=== PATIENT | female | born 1950 | race Caucasian/White ===

== ENCOUNTER 2023-08-26 14:13 | Inpatient (IN) ==
--- NOTE | 2023-08-26 14:17 | ED Triage Note ---
Date of Service August 26, 2023 Provider in Triage Author: Derik Rucker History of Present Illness This patient was briefly evaluated while in triage. An abbreviated physical exam was performed. This patient is a 72-year-old Female who presents to the ED via ambulance for evaluation of right-sided back pain for the past 2 days, and is now concentrating into the shoulder blade region. The patient was playing volleyball on Tuesday, and had no pain at that time. Patient denies any abdominal pain. Patient denies any chest pain, shortness of breath or difficulty breathing. Patient denies any recent injuries to the back. Patient has had a prior history of right elbow fracture. The patient rates her discomfort an 8 out of 10. Physical Exam CONSTITUTIONAL: Healthy and well nourished. Patient does not appear in any acute distress. HEENT: No scleral icterus or conjunctival injection. NECK: Full active range of motion without discomfort. RESPIRATORY: Clear to auscultation bilaterally with no wheezing, crackles, rhonchi or stridor. CARDIOVASCULAR: Regular rate and rhythm with no murmurs, rubs or gallops. GASTROINTESTINAL: Bowel sounds present in all quadrants. Abdomen is soft and nontender to palpation. MUSCULOSKELETAL: No tenderness to palpation over the right posterior shoulder or scapular region. No worsening pain with range of motion of the right shoulder. No tenderness to palpation through the central thoracic spine or paraspinous muscles. INTEGUMENTARY: No rash or other significant dermatologic conditions noted. HEMATOLOGIC: No ecchymosis or petechiae. PSYCHIATRIC: Positive affect. NEUROLOGIC: No focal neurologic deficits noted. Initial orders for labs and / or imaging were placed and patient was placed in the waiting area until a bed is available. Please see further documentation for the full ED course.
[2023-08-26 15:06] LABS: Basophils # (auto) 0.04 K/uL (0.00-0.20); Basophils % (auto) 0.4 %; Eosinophils # (auto) 0.04 K/uL (0.00-0.50); Eosinophils % (auto) 0.4 %; Hemoglobin 16.5 g/dl (12.0-16.0); Immature Granulocytes # (auto) 0.03 K/uL (0.01-0.20); Immature Granulocytes % (auto) 0.3 %; Lymphocytes # (auto) 1.45 K/uL (1.20-3.40); Mean Corpuscular Hemoglobin 31.1 pg (25.0-34.0); Mean Corpuscular Hgb Conc 34.4 g/dL (32.0-36.0); Mean Corpuscular Volume 90.4 fL (80.0-100.0); Monocytes # (auto) 0.55 K/uL (0.11-0.59); Monocytes % (auto) 6.1 %; Neutrophils # (auto) 6.96 K/uL (1.40-6.50); Neutrophils % (auto) 76.8 %; Platelet Count 270 K/uL (130-400); RDW Coefficient of Variation 12.1 % (11.5-14.5); RDW Standard Deviation 39.7 fL (36.4-46.3); Red Blood Count 5.31 M/uL (4.20-5.40); White Blood Count 9.07 K/ul (4.8-10.8)
[2023-08-26 15:14] LABS: Partial Thromboplastin Ratio 0.8; Partial Thromboplastin Time 23 Seconds (21-31); Prothrombin Time 10.5 Seconds (9.0-12.0)
--- NOTE | 2023-08-26 15:14 | XRay Report ---
TWO VIEW CHEST CLINICAL HISTORY: Atypical chest pain. FINDINGS: PA and lateral chest radiographs are obtained. No prior studies are available for compariso n at the time of dictation. The heart is top normal for projection. Suspect aneurysmal dilatation of the ascending thoracic aorta. The lungs and pleural spaces are clear. There is no pneumothorax. The skeletal structures are osteopenic. The bony thorax appears intact. A large gallstone is seen in the right upper quadrant. IMPRESSION: 1. No acute cardiopulmonary abnormality is identified. 2. Question aneurysmal dilatation of the ascending thoracic aorta. This may be artifactual. Correlati on with a chest CT is recommended. 3. A large gallstone is seen in the right upper quadrant. ACT 112: Negative or not required by law. Electronically signed by: Jeffrey Mata M.D. 08/26/2023 3:12 PM
[2023-08-26 15:28] LABS: Troponin I High Sensitivity 3.5 pg/ml (0-14)
--- NOTE | 2023-08-26 15:38 | Emergency Department Note ---
Impression & Plan Biliary colic, Lesion of right soboba kidney, Right shoulder pain ED Provider Note NAME: DEVIN ORDONEZ AGE: 72 SEX: F : 1950 ARRIVES VIA: Ambulance INFORMANT: Patient, ED PROVIDER(S): Kristopher Mendoza MD CHIEF COMPLAINT: Shoulder pain MEDICAL DECISION MAKING: Patient presented due to concern for shoulder pain. IV was established and blood work was obtained along with a chest x-ray and EKG. Patient's blood work shows a normal white count hemoglobin of 16.5 with a normal platelet count kidney function is unremarkable. Calcium of 11.2. Patient's chest x-ray showed concern for large gallstone in the right upper quadrant and possible aneurysmal dilatation of the ascending thoracic aorta. CT angiography of the chest was ordered in addition to gallbladder ultrasound. CT angiography of the chest shows concern for possible right renal mass which may be renal cell carcinoma. Cholelithiasis noted with findings suggestive of acute cholecystitis. No evidence of thoracic aortic aneurysm. Gallbladder ultrasound does show gallbladder distention and cholelithiasis and borderline wall thickening suspicious for cholecystitis. I did inform the patient of the findings. The patient was ordered IV morphine. I did speak the on-call hospital service Alex Herrera PA-C and Dr. Moeller. I also did speak with Dr. Edwards and will be admitted to the medicine service at this time. Patient was ordered Zosyn due to concern for possible cholecystitis. Discussion w/ other healthcare providers: Alex Barrientos PA-C and Dr. Moeller inpatient medicine service Dr. Edwards general surgery Prior /Outside records reviewed: None Differential diagnosis: Referred gallbladder pain, biliary colic, cholecystitis, fracture, sprain, strain, subluxation, dislocation, contusion, ligamentous injury, neurovascular, as well as other etiologies were considered. Diagnostics, as interpreted by me: ECG: Normal sinus rhythm, rate of 88, normal intervals, left axis deviation, no ST elevations Cardiac monitoring: An order was placed for continuous cardiac monitoring. The monitor shows a rate of 82 with sinus rhythm. Patient was placed on pulse oximetry Medical decision rules: None Imaging studies: I informally interpreted the patient's chest x-ray does not show obvious pneumonia or pneumothorax with formal report to follow. HPI: Patient presents due to concern for right-sided posterior shoulder pain. The patient states she initially began having symptoms on Tuesday. The patient had played volleyball on Tuesday but had no symptoms at that time. The patient states that she does not have pain with range of motion of the right upper extremity. The patient is right-hand dominant. The patient denies any trauma or overuse other than having played volleyball. Patient denies any numbness tingling or focal weakness in her right upper extremity. Patient denies abdominal pain or nausea vomiting. PAST MEDICAL HISTORY: See Below PAST SURGICAL HISTORY: See Below SOCIAL HISTORY: See Below HOME MEDICATIONS: See Below ALLERGIES: See Below VITALS: See Below PHYSICAL EXAMINATION: GENERAL: NAD, non-toxic. EYE EXAM: Normal conjunctiva. PERRL, no anisocoria and EOM's grossly intact w/o pain. OROPHARYNX: Moist mucus membranes, grossly normal dentition. NECK: Trachea midline, no stridor. Supple, no nuchal rigidity, no adenopathy, non-tender. No signs of meningismus. FROM of the neck with good chin to chest and neck extension. LUNGS: Clear to auscultation. Normal chest wall mechanics. HEART: NSR, no MRG. ABDOMEN: Abdomen soft, no right upper quadrant pain, no masses, no rebound or guarding. BACK: No CVA TTP. SKIN: No rashes and no bruising. UPPER EXTREMITIES: Upper extremities are grossly normal. No reproducible pain with range of motion of the right upper extremity LOWER EXTREMITIES: Grossly normal, no edema. NEURO EXAM: A&O x3, cranial nerves II-XII grossly intact, normal speech, moves all 4 extremities. Past Med/Surg History Medical History HTN (hypertension) Cyst (solitary) of breast 1994 Surgical History H/O elbow surgery Right Elbow H/O removal of cyst Family History Father Diabetes Mother Alzheimer disease Denies family history of Colon cancer Ovarian cancer Prostate cancer Myocardial infarction Breast cancer Social History Smoking Status: Never smoker Second Hand Exposure: Yes; Do You Dip or Chew Tobacco: No; Hx Alcohol Use: No Hx Substance Use: No Preferred Language: Cambodian Communication Ability: Effective Visual Impairment: No Limitations Hearing Ability: Normal Drapery Cutter Machine Required: No marital status: / Current Living Situation: Alone current occupational status: retired 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 [place] How many Children do You have: 2 Feels Safe at Home: Yes Childhood Exposure to Second-Hand Smoke: Yes Diet: regular Diet Comment: regular caffeine: Yes during the past year weight has: remained stable Dental Care, Regularly: Yes Physical Activity Frequency: Daily Physical Activity Frequency Comment: walking Seatbelt Use: always Sunscreen Use: Yes Do you think of yourself as: straight/heterosexual Assistive Devices: Denture - Upper and Denture - Lower Allergies Allergies Allergy/AdvReac Type Severity Reaction Status Date / Time hydrocodone AdvReac Intermediate Vomiting Verified 08/03/22 09:51 Home Meds Home Medications Medication Instructions Recorded Confirmed atorvastatin 10 mg tablet 10 mg PO QPM 08/26/23 08/26/23 calcium carbonate 500 mg-vitamin 0 tab PO DAILY 08/26/23 08/26/23 D3 10 mcg (400 unit) tablet (Calcium 500 With D) Previous Rx's Medication Instructions Recorded lisinopril 10 mg tablet 10 mg PO DAILY #90 tabs 06/02/23 Results & Data (ED) Vital Signs Vital Signs - 24 hr 08/26/23 14:17 08/26/23 15:14 08/26/23 17:55 Temperature 36.4 C L Temperature Source Temporal Artery Scan Pulse Rate 98 H Pulse Rate [Left Finger] 85 81 Respiratory Rate 16 20 17 Respiratory Depth Normal Blood Pressure 153/109 H Blood Pressure [Right Arm] 174/109 H 200/106 H Blood Pressure Mean 123 Blood Pressure Mean [Right Arm] 130 137 Blood Pressure Position [Right Arm] Lying Pulse Oximetry 95 95 93 Oxygen Delivery Method Room Air Room Air Room Air Sepsis Recent Fever Within 48 Hours No Sepsis New/Unexplained Change in Mental Status N/A Sepsis Action Taken by Nursing No Action Required Home Medications Current Medication List: was personally reviewed by me Laboratory Data Attestation: I reviewed the patient's lab results. 08/26/23 14:49 08/26/23 14:49 Lab Results 08/26/23 Range/Units 14:49 WBC 9.07 (4.8-10.8) K/ul RBC 5.31 (4.20-5.40) M/uL Hgb 16.5 H (12.0-16.0) g/dl Hct 48.0 H (37.0-47.0) % MCV 90.4 (80.0-100.0) fL MCH 31.1 (25.0-34.0) pg MCHC 34.4 (32.0-36.0) g/dL RDW Std Deviation 39.7 (36.4-46.3) fL RDW Coeff of Simeon 12.1 (11.5-14.5) % Plt Count 270 (130-400) K/uL MPV 11.0 (9.4-12.4) fL Immature Gran % (Auto) 0.3 % Neut % (Auto) 76.8 % Lymph % (Auto) 16.0 % [place] % (Auto) 6.1 % Eos % (Auto) 0.4 % Baso % (Auto) 0.4 % Neut # (Auto) 6.96 H (1.40-6.50) K/uL Lymph # (Auto) 1.45 (1.20-3.40) K/uL [place] # (Auto) 0.55 (0.11-0.59) K/uL Eos # (Auto) 0.04 (0.00-0.50) K/uL Baso # (Auto) 0.04 (0.00-0.20) K/uL Immature Gran # (Auto) 0.03 (0.01-0.20) K/uL PT 10.5 (9.0-12.0) Seconds INR 1.0 (0.9-1.1) APTT 23 (21-31) Seconds PTT Ratio 0.8 Sodium 141 (136-145) mmol/L Potassium 3.9 (3.5-5.1) mmol/L Chloride 106 (98-107) mmol/L Carbon Dioxide 23 (21-32) mmol/L Anion Gap 12 H (3-11) BUN 15 (6-23) mg/dl Creatinine 0.98 (0.6-1.2) mg/dl Est Cr Clr Drug Dosing 49.0 ml/min Est GFR ( Amer) 65.9 ml/min Est GFR (Non-Af Amer) 56.8 ml/min BUN/Creatinine Ratio 15.3 (10-20) Glucose 119 H (70-99(Fasting)) mg/dl Calcium 11.2 H (8.6-10.3) mg/dl Total Bilirubin 0.8 (0.2-1.0) mg/dl AST 18 (13-39) U/L ALT 12 (7-52) U/L Alkaline Phosphatase 83 (34-104) U/L Troponin I High Sens 3.5 (0-14) pg/ml Total Protein 8.0 (6.0-8.3) gm/dl Albumin 4.6 (3.4-5.0) gm/dl Globulin 3.4 (2.5-4.0) gm/dl Albumin/Globulin Ratio 1.4 (0.9-2) Lipase 28 (11-82) U/L Administered Medications Parenteral Electrolytes (Plasma-Lyte A Ph 7.4) 1,000 mls @ 100 mls/hr IV .Q10H HAYLEE Stop: 08/27/23 14:29 Last Admin: 08/26/23 19:41 Dose: 100 mls/hr Documented By: MATI Discontinued Medications Piperacillin Sod/Tazobactam Sod (Zosyn) 4.5 gm in 100 mls @ 200 mls/hr IV NOW ONE Stop: 08/26/23 18:18 Last Infusion: 08/26/23 19:03 Dose: Infused Documented By: Admin: 08/26/23 18:04 Dose: 200 mls/hr Documented By: PABLO Ioversol (Optiray 320 125ml) 119 ml IV ONCE ONE Stop: 08/26/23 16:41 Last Admin: 08/26/23 16:40 Dose: 119 ml Documented By: MRATA Morphine Sulfate (Morphine Sulfate 4 Mg/Ml 1 Ml Carp\Vial) 4 mg IV NOW STA Stop: 08/26/23 17:50 Last Admin: 08/26/23 17:52 Dose: 4 mg Documented By: JESSICA Imaging Data Radiologist's Impression: Chest X-Ray 08/26/23 14:20 TWO VIEW CHEST CLINICAL HISTORY: Atypical chest pain. FINDINGS: PA and lateral chest radiographs are obtained. No prior studies are available for comparison at the time of dictation. The heart is top normal for projection. Suspect aneurysmal dilatation of the ascending thoracic aorta. The lungs and pleural spaces are clear. There is no pneumothorax. The skeletal structures are osteopenic. The bony thorax appears intact. A large gallstone is seen in the right upper quadrant. IMPRESSION: 1. No acute cardiopulmonary abnormality is identified. 2. Question aneurysmal dilatation of the ascending thoracic aorta. This may be artifactual. Correlation with a chest CT is recommended. 3. A large gallstone is seen in the right upper quadrant. ACT 112: Negative or not required by law. Electronically signed by: Jeffrey Mata M.D. 08/26/2023 3:12 PM Chest CTA 08/26/23 15:46 CT angio chest PE protocol CT DOSE: 602.94 mGy.cm HISTORY: 72 years-old Female with ?aortic aneurysm. Acute shortness of breath TECHNIQUE: Multiple CTA images of the chest were obtained after the intravenous administration of 119 ml Optiray. Coronal and sagittal MIPS were obtained from the axial data set and were submitted for review. All measurements were obtained according to NASCET criteria. A dose lowering technique was utilized adhering to the principles of ALARA. COMPARISON: Chest radiograph of same day FINDINGS: CTA: Mild cardiomegaly. No pericardial effusion. Ascending thoracic aorta measures 3.8 x 3.9 cm without aneurysm. Patency of the imaged great vessels. Thoracic aortic tortuosity. Unremarkable pulmonary artery. CT CHEST: Subcentimeter hypodense thyroid nodules. Nonspecific mediastinal and hilar lymphadenopathy. Index right hilar lymph node on image 145 series 4 measures 3.2 x 1.5 cm. AP window/paratracheal adenopathy measures up to 2.9 x 1.6 cm. Additional pathologically enlarged gastrohepatic lymph nodes measure up to 11 mm. Mild periesophageal lymphadenopathy. Mild distal esophageal wall thickening. No pneumothorax, pleural effusion, airspace consolidation or pulmonary edema. 4 mm subpleural solid nodule in the apical posterior segment left upper lobe is favored to be benign. Central airways are patent. There is an enhancing 2.0 x 2.2 cm mass of the superior pole right kidney which is partially imaged. Cholelithiasis with gallbladder wall thickening, distention and mild pericholecystic stranding. There are a few subcentimeter hypodensities of the liver which are too small to characterize and likely benign. Colonic diverticulosis. Unremarkable soft tissues. No acute fracture. IMPRESSION: 1. Enhancing 2.2 cm right renal mass suggestive of renal cell carcinoma. 2. Cholelithiasis with findings suggestive of acute cholecystitis. 3. No pulmonary emboli or thoracic aortic aneurysm. 4. Nonspecific lymphadenopathy of the chest and upper abdomen. Follow-up with hematology/oncology recommended. ACT 112: Positive. There are findings on this exam that require communication between the performing entity and the patient following Patient Test Result Information Act ([place] Act 112) guidelines. The above report was generated using voice recognition software. It may contain grammatical, syntax or spelling errors. Electronically signed by: Cesar Peña M.D. 08/26/2023 5:01 PM Gallbladder Ultrasound 08/26/23 15:46 ABDOMINAL ULTRASOUND, RIGHT UPPER QUADRANT HISTORY: Acute right upper quadrant abdominal pain shoulder pain, gallstone seen on CXR. COMPARISON: CTA chest of same day FINDINGS: Pancreas: The pancreas demonstrates a normal echotexture. Liver: Unremarkable. Gallbladder: 2.8 cm stone within the gallbladder. Borderline wall thickening measures 3 mm. No definite pericholecystic fluid identified. Negative sonographic Reynoso's sign. CBD: 0.2 cm. Right kidney: The 2.2 cm mass in the superior pole right kidney is not well visualized by ultrasound. No hydronephrosis. IMPRESSION: 1. Cholelithiasis with gallbladder distention and borderline wall thickening suspicious for acute cholecystitis. This could be confirmed with nuclear medicine hepatobiliary scan. 2. No biliary ductal dilation. 3. Probable renal cell carcinoma of the superior pole right kidney is better seen on the same day CTA of the chest. ACT 112: Negative or not required by law. Electronically signed by: Cesar Peña M.D. 08/26/2023 5:36 PM Discharge Plan Visit Data Chief Complaint: Shoulder Pain Stated Complaint: R SIDE PAIN ED Provider: Kristopher Mendoza Discharge Problem: Biliary colic, Lesion of right soboba kidney, Right shoulder pain Patient Disposition: Admitted As Inpatient Forms Stand Alone Forms: dINK Prescriptions Prescriptions: No Action lisinopril 10 mg tablet 10 mg PO DAILY Qty: 90 3RF atorvastatin 10 mg tablet 10 mg PO QPM Rx Instructions: TAKE 1 TABLET BY MOUTH EVERY EVENING calcium carbonate-vitamin D3 [Calcium 500 With D] 500 mg-10 mcg (400 unit) tablet 0 tab PO DAILY Rx Instructions: Unable to verify OTC meds with patient at this date/time. Referrals Referrals: Job Brown III, CRNP [Primary Care Provider] - Discharge Problem: Right shoulder pain Qualifiers: Chronicity: acute Qualified Code(s): M25.511 - Pain in right shoulder
[2023-08-26 15:53] LABS: Albumin Level 4.6 gm/dl (3.4-5.0); Bilirubin,Total 0.8 mg/dl (0.2-1.0); Calcium 11.2 mg/dl (8.6-10.3); Potassium 3.9 mmol/L (3.5-5.1)
[2023-08-26 15:59] LABS: Albumin Globulin Ratio 1.4 (0.9-2); BUN Creatinine Ratio 15.3 (10-20); Est GFR (African American) 65.9 ml/min; Est GFR (Non-African American) 56.8 ml/min; Globulin 3.4 gm/dl (2.5-4.0)
[2023-08-26] MEDS: OPTIRAY 320 125ml IV ONE (16:40)
--- NOTE | 2023-08-26 17:03 | CT Scan Report ---
CT angio chest PE protocol CT DOSE: 602.94 mGy.cm HISTORY: 72 years-old Female with ?aortic aneurysm. Acute shortness of breath TECHNIQUE: Multiple CTA images of the chest were obtained after the intravenous administration of 119 ml Optiray. Coronal and sagittal MIPS were obtained from the axial data set and were submitted for review. All measurements were obtained according to NASCET criteria. A dose lowering technique was u tilized adhering to the principles of ALARA. COMPARISON: Chest radiograph of same day FINDINGS: CTA: Mild cardiomegaly. No pericardial effusion. Ascending thoracic aorta measures 3.8 x 3.9 cm without an eurysm. Patency of the imaged great vessels. Thoracic aortic tortuosity. Unremarkable pulmonary arter y. CT CHEST: Subcentimeter hypodense thyroid nodules. Nonspecific mediastinal and hilar lymphadenopathy. Index rig ht hilar lymph node on image 145 series 4 measures 3.2 x 1.5 cm. AP window/paratracheal adenopathy me asures up to 2.9 x 1.6 cm. Additional pathologically enlarged gastrohepatic lymph nodes measure up to 11 mm. Mild periesophageal lymphadenopathy. Mild distal esophageal wall thickening. No pneumothorax, pleural effusion, airspace consolidation or pulmonary edema. 4 mm subpleural solid n odule in the apical posterior segment left upper lobe is favored to be benign. Central airways are pa tent. There is an enhancing 2.0 x 2.2 cm mass of the superior pole right kidney which is partially imaged. Cholelithiasis with gallbladder wall thickening, distention and mild pericholecystic stranding. There are a few subcentimeter hypodensities of the liver which are too small to characterize and likely be nign. Colonic diverticulosis. Unremarkable soft tissues. No acute fracture. IMPRESSION: 1. Enhancing 2.2 cm right renal mass suggestive of renal cell carcinoma. 2. Cholelithiasis with findings suggestive of acute cholecystitis. 3. No pulmonary emboli or thoracic aortic aneurysm. 4. Nonspecific lymphadenopathy of the chest and upper abdomen. Follow-up with hematology/oncology rec ommended. ACT 112: Positive. There are findings on this exam that require communication between the performing entity and the patient following Patient Test Result Information Act ([place] Act 112) guidelines. The above report was generated using voice recognition software. It may contain grammatical, syntax o r spelling errors. Electronically signed by: Cesar Peña M.D. 08/26/2023 5:01 PM
--- NOTE | 2023-08-26 17:37 | Ultrasound Report ---
ABDOMINAL ULTRASOUND, RIGHT UPPER QUADRANT HISTORY: Acute right upper quadrant abdominal pain shoulder pain, gallstone seen on CXR. COMPARISON: CTA chest of same day FINDINGS: Pancreas: The pancreas demonstrates a normal echotexture. Liver: Unremarkable. Gallbladder: 2.8 cm stone within the gallbladder. Borderline wall thickening measures 3 mm. No defini te pericholecystic fluid identified. Negative sonographic Reynoso's sign. CBD: 0.2 cm. Right kidney: The 2.2 cm mass in the superior pole right kidney is not well visualized by ultrasound. No hydronephrosis. IMPRESSION: 1. Cholelithiasis with gallbladder distention and borderline wall thickening suspicious for acute cho lecystitis. This could be confirmed with nuclear medicine hepatobiliary scan. 2. No biliary ductal dilation. 3. Probable renal cell carcinoma of the superior pole right kidney is better seen on the same day CTA of the chest. ACT 112: Negative or not required by law. Electronically signed by: Cesar Peña M.D. 08/26/2023 5:36 PM
[2023-08-26] MEDS: MoRPHine SULFATE 4 MG/ML 1 ML CARP\\VIAL IV STA (17:52)
[2023-08-26] MEDS: PIPERACILLIN/TAZOBACTAM 4.5 GM/100 ML BAG IV ONE (18:04)
--- NOTE | 2023-08-26 18:12 | History & Physical Report ---
Date of Service August 26, 2023 Assessment & Plan (1) Cholelithiasis: Plan: -Admit to med/surge on pulse oximetry -Currently stable and non-toxic appearing -Presented to the ED with 3 days of intermittent, severe right posterior shoulder pain -CXR today noted a large gallstone -CT of the Chest with PE protocol was negative for PE but did show >Cholelithiasis with findings suggestive of acute cholecystitis >Enhancing 2.2 cm right renal mass suggestive of renal cell carcinoma. >Nonspecific lymphadenopathy of the chest and upper abdomen. -Cholelithiasis with gallbladder distention and borderline wall thickening suspicious for acute cholecystitis -General surgery has been consulted and will take her to the OR tomorrow depending on HIDA scan results and ongoing symptoms -LFT's are WNL -Will try and obtain HIDA scan on admission, unsure if this can be obtained on the weekend >General Surgery did confirm that not obtaining the HIDA scan would not delay treatment -S/P one dose of Zosyn in the ED, will continue with Ceftriaxone and Flagyl for now -Will start maintenance Plasmalyte on admission -Pain control with Tylenol and dilaudid -PRN narcan for oversedation/respiratory depression -BL SCD's for DVT PPX -Clear liquid diet until midnight then NPO in case of OR tomorrow (2) Lesion of right [place] kidney: Plan: -Patient was noted to have an E=enhancing 2.2 cm right renal mass suggestive of renal cell carcinoma. >This was also noted on gallbladder US today -Patient was unaware of a previous diagnosis -Renal function is stable -Please ensure patient has outpatient Urology referral on discharge (3) Right shoulder pain: Plan: -Likely due to her cholelithiasis with likely associated acute cholecystitis -Plan as per cholelithiasis (4) Dyslipidemia: Plan: -Continue statin (5) HTN (hypertension): Plan: -Patient noted to be hypertensive at 174/109 in the ED -This was taken shortly after she received the news of the right kidney lesion -Likely a combination of anxiety and pain -Will let her get a dose of dilaudid for pain and reassess -Will hold am dose of lisinopril tomorrow in case of OR with General Surgery Plan The patient was discussed with Dr. Moeller at the time of the admission History of Present Illness Chief Complaint: Shoulder pain Primary Care Provider: Job Brown, RISHI, FRANTZ Gina Valles is a 72 year old female with a PMH significant for HTN and dyslipidemia who presented to the [facility] ED on 08/26/23 with a chief complaint of right shoulder pain. She was noted to be hypertensive at 174/109, tachycardic at 98, but otherwise stable. Labs were significant for an AG of 12 with bicarb WNL but CBC, CMP, and high sen trop were WNL. CXR was read as 1. No acute cardiopulmonary abnormality is identified 2. Question aneurysmal dilatation of the ascending thoracic aorta. This may be artifactual. Correlation with a chest CT is recommended. 3. A large gallstone is seen in the right upper quadrant.. Chest CTA was read as 1. Enhancing 2.2 cm right renal mass suggestive of renal cell carcinoma. 2. Cholelithiasis with findings suggestive of acute cholecystitis. 3. No pulmonary emboli or thoracic aortic aneurysm. 4. Nonspecific lymphadenopathy of the chest and upper abdomen. Follow-up with hematology/oncology recommended.. Gallbladder US was read as 1. Cholelithiasis with gallbladder distention and borderline wall thickening suspicious for acute cholecystitis. This could be confirmed with nuclear medicine hepatobiliary scan. 2. No biliary ductal dilation. 3. Probable renal cell carcinoma of the superior pole right kidney is better seen on the same day CTA of the chest... Prior to admission the patient was given 4 mg IV morphine and a dose of zosyn. At the time of the exam the patient was sitting in bed. She is tearful after hearing the results of her chest CT. She states that she started to develop acute right posterior shoulder pain which woke her up from sleep at 0400 on 08/24/23. The patient has been sharp/stabbing, a 10/10 at it's worst, and has not significantly changed with eating/drinking. She thought it was musculoskeletal pain and tried topical agents, tylenol, and Ibuprofen without improvement. She denies fever, chills, chest pain, SOB, cough, abd pain, nausea, vomiting, dysuria, hematuria, melena, diarrhea, LE swelling, and recent trauma. I explained to her that we will be obtaining a HIDA scan for further assessment. We will make her NPO at midnight in case of surgery tomorrow. We discussed the lesion noted on her right kidney. I explained that renal cell carcinoma is on the differential, but we will need to wait for outpatient biopsy results for conclusive answers. She is a full code and her brother is her POA. Please refer to Dr. Moeller's attestation for any changes to the treatment plan Allergies Allergy/AdvReac Type Severity Reaction Status Date / Time hydrocodone AdvReac Intermediate Vomiting Verified 08/03/22 09:51 Home Medications Medication Instructions Recorded Confirmed Type lisinopril 10 mg tablet 10 mg PO DAILY #90 tabs 06/02/23 08/26/23 Rx atorvastatin 10 mg tablet 10 mg PO QPM 08/26/23 08/26/23 History calcium carbonate 500 mg-vitamin 0 tab PO DAILY 08/26/23 08/26/23 History D3 10 mcg (400 unit) tablet (Calcium 500 With D) Past Med/Surg History Medical History HTN (hypertension) Cyst (solitary) of breast 1993 Surgical History H/O elbow surgery Right Elbow H/O removal of cyst Family History Father Diabetes Mother Alzheimer disease Denies family history of Colon cancer Ovarian cancer Prostate cancer Myocardial infarction Breast cancer Social History Smoking Status: Former smoker Tobacco Type: Cigarettes Second Hand Exposure: Yes; Do You Dip or Chew Tobacco: No; Tobacco Cessation Education Requested by Patient: No Hx Alcohol Use: Yes Alcohol type: wine Hx Substance Use: No Preferred Language: Niuean Communication Ability: Effective Visual Impairment: No Limitations Hearing Ability: Normal Dyehouse Worker Required: No Beliefs That Will Affect Care: None marital status: / Current Living Situation: Alone Current Living Situation Comment: Patient does not drive, walks to grocery store, bank, etc. 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 [place] How many Children do You have: 2 Other Information That Helps Us Care for You: No Feels Safe at Home: Yes Safety Concerns: Feels Safe At This Time Childhood Exposure to Second-Hand Smoke: Yes Diet: regular Diet Comment: regular caffeine: Yes during the past year weight has: remained stable Dental Care, Regularly: Yes Physical Activity Frequency: Daily Physical Activity Frequency Comment: walking Seatbelt Use: always Sunscreen Use: Yes Do you think of yourself as: straight/heterosexual Assistive Devices: None Physical Exam Physical Exam: Physical Exam: General: In mild distress due to anxiety, stated age, well-nourished, good hygiene, non-toxic appearing HEENT: Normocephalic, atraumatic, no scleral icterus, pupils around round, symmetrical, and reactive to light, moist mucus membranes, trachea midline, no thyromegaly Chest/Pulm: No respiratory distress, symmetrical chest expansion, clear breath sounds throughout Cardiac: RRR, no murmurs noted Abdomen: Negative for ascites and bruising, normoactive bowel sounds, soft, non-tender to palpation throughout, negative reynoso's sign Musculoskeletal: Symmetrical and without signs of acute trauma, upper and lower extremities with full ROM, no atrophy, spasticity, or flaccidity Extremities: Radial, dorsalis pedis, and posterior tibial pulses are intact and symmetrical, no edema noted in the BL LE's Skin: Warm, dry, no rashes , lesions, or scars noted Neuro: Alert and oriented to person, place, month, year, and president, no focal defects,no tremors noted Psych: Mild distress due to anxiety, polite and cooperative during the exam Results & Data Results & Data Vital Signs (Past 12 Hours) Vital Signs Temp Pulse Pulse Resp BP BP Pulse Ox 08/26/23 17:55 81 17 200/106 H 93 08/26/23 15:14 85 20 174/109 H 95 08/26/23 14:17 36.4 C L 98 H 16 153/109 H 95 O2 Del Method 08/26/23 17:55 Room Air 08/26/23 15:14 Room Air 08/26/23 14:17 Room Air Laboratory Results Abnormal lab results 08/26/23 Range/Units 14:49 Hgb 16.5 H (12.0-16.0) g/dl Hct 48.0 H (37.0-47.0) % Neut # (Auto) 6.96 H (1.40-6.50) K/uL Anion Gap 12 H (3-11) Glucose 119 H (70-99(Fasting)) mg/dl Calcium 11.2 H (8.6-10.3) mg/dl Diagnostic Findings Chest X-Ray 08/26/23 14:20 TWO VIEW CHEST CLINICAL HISTORY: Atypical chest pain. FINDINGS: PA and lateral chest radiographs are obtained. No prior studies are available for comparison at the time of dictation. The heart is top normal for projection. Suspect aneurysmal dilatation of the ascending thoracic aorta. The lungs and pleural spaces are clear. There is no pneumothorax. The skeletal struc tures are osteopenic. The bony thorax appears intact. A large gallstone is seen in the right upper quadrant. IMPRESSION: 1. No acute cardiopulmonary abnormality is identified. 2. Question aneurysmal dilatation of the ascending thoracic aorta. This may be artifactual. Correlation with a chest CT is recommended. 3. A large gallstone is seen in the right upper quadrant. ACT 112: Negative or not required by law. Electronically signed by: Jeffrey Mata M.D. 08/26/2023 3:12 PM Chest CTA 08/26/23 15:46 CT angio chest PE protocol CT DOSE: 602.94 mGy.cm HISTORY: 72 years-old Female with ?aortic aneurysm. Acute shortness of breath TECHNIQUE: Multiple CTA images of the chest were obtained after the intravenous administration of 119 ml Optiray. Coronal and sagittal MIPS were obtained from the axial data set and were submitted for review. All measurements were obtained according to NASCET criteria. A dose lowering technique was utilized adhering to the principles of ALARA. COMPARISON: Chest radiograph of same day FINDINGS: CTA: Mild cardiomegaly. No pericardial effusion. Ascending thoracic aorta measures 3.8 x 3.9 cm without aneurysm. Patency of the imaged great vessels. Thoracic aortic tortuosity. Unremarkable pulmonary artery. CT CHEST: Subcentimeter hypodense thyroid nodules. Nonspecific mediastinal and hilar lymp hadenopathy. Index right hilar lymph node on image 145 series 4 measures 3.2 x 1.5 cm. AP window/paratracheal adenopathy measures up to 2.9 x 1.6 cm. Additional pathologically enlarged gastrohepatic lymph nodes measure up to 11 mm. Mild periesophageal lymphadenopathy. Mild distal esophageal wall thickening. No pneumothorax, pleural effusion, airspace consolidation or pulmonary edema. 4 mm subpleural solid nodule in the apical posterior segment left upper lobe is favored to be benign. Central airways are patent. There is an enhancing 2.0 x 2.2 cm mass of the superior pole right kidney which is partially imaged. Cholelithiasis with gallbladder wall thickening, distention and mild pericholecystic stranding. There are a few subcentimeter hypodensities of the liver which are too small to characterize and likely benign. Colonic diverticulosis. Unremarkable soft tissues. No acute fracture. IMPRESSION: 1. Enhancing 2.2 cm right renal mass suggestive of renal cell carcinoma. 2. Cholelithiasis with findings suggestive of acute cholecystitis. 3. No pulmonary emboli or thoracic aortic aneurysm. 4. Nonspecific lymphadenopathy of the chest and upper abdomen. Follow-up with hematology/oncology recommended. ACT 112: Positive. There are findings on this exam that require communication between the performing entity and the patient following Patient Test Result Information Act ([place] Act 112) guidelines. The above report was generated using voice recognition software. It may contain grammatical, syntax or spelling errors. Electronically signed by: Cesar Peña M.D. 08/26/2023 5:01 PM Gallbladder Ultrasound 08/26/23 15:46 ABDOMINAL ULTRASOUND, RIGHT UPPER QUADRANT HISTORY: Acute right upper quadrant abdominal pain shoulder pain, gallstone seen on CXR. COMPARISON: CTA chest of same day FINDINGS: Pancreas: The pancreas demonstrates a normal echotexture. Liver: Unremarkable. Gallbladder: 2.8 cm stone within the gallbladder. Borderline wall thickening measures 3 mm. No definite pericholecystic fluid identified. Negative sonographic Reynoso's sign. CBD: 0.2 cm. Right kidney: The 2.2 cm mass in the superior pole right kidney is not well visualized by ultrasound. No hydronephrosis. IMPRESSION: 1. Cholelithiasis with gallbladder distention and borderline wall thickening suspicious for acute cholecystitis. This could be confirmed with nuclear medicine hepatobiliary scan. 2. No biliary ductal dilation. 3. Probable renal cell carcinoma of the superior pole right kidney is better seen on the same day CTA of the chest. ACT 112: Negative or not required by law. Electronically signed by: Cesar Peña M.D. 08/26/2023 5:36 PM ECG Additional Comments: Normal sinus rhythm Left axis deviation Possible Anterior infarct , age undetermined Abnormal ECG No previous ECGs available Code Status & VTE Plan Code Status FUll code VTE Prophylaxis Plan VTE Prophylaxis will be ordered: Yes Supervising Physician Co-Signing Physician Notes I personally saw and examined the patient. I verified all garcia points and agree with Alex Herrera PA-C with the following exceptions and/or additions: 72 year old female presents to the ER with right sided scapula pain that started 2 days ago . No pains prior to this in scapula or abdominal. No change with eating. Due to the pain not improving she decided to come to the ER today. O/E HS RRR, no murmurs, Chest CTAB, Abdo SNT, pain over right medial scapula on palpation, no shoulder pain on shoulder abduct, flex, ext, palpation A/P Right scapula pain - most likely MSK in nature but given cholelithiasis with concern for acute cholecystitis on imaging will treat as such pending HIDA scan and general surgery consultation however the pain is reproducible on direct palpation and not on abdominal exam making referred pain less likely. Cholelithiasis with acute cholecystis - possible diagnosis but mainly just based on imaging. No biliary colic pain from history. Treat overnight with IV ceftriaxone and metronidazole pending HIDA scan. Right kidney mass - follow up with urology as outpatient PG Care Time/CCT Total # of Minutes Spent Total Time Spent with Patient: Total time spent is greater than 50% in coordination of care (as documented) at patient's floor/unit and/or counseling patient: Coding [place] [address] INT INP/OBS CARE 2/55MIN Patient Type Established Medical Decision Making High Complexity Diagnoses Cholelithiasis K80.20 Lesion of right [place] kidney N28.9 Right shoulder pain M25.511 Dyslipidemia E78.5 HTN (hypertension) I10
[2023-08-26] MEDS ORDERED: ACETAMINOPHEN 325 MG TAB PO PRN (18:17)
[2023-08-26] MEDS ORDERED: NALOXONE HCL 0.4 MG/1 ML VIAL/CARP IV PRN (18:34)
[2023-08-26] MEDS: PLASMA-LYTE A 1,000 ML IV SCH (19:41)
[2023-08-26] MEDS: HYDROmorphone INJ 0.5 MG/0.5 ML SYR IV PRN (20:59)
[2023-08-26] MEDS: HYDROmorphone INJ 0.5 MG/0.5 ML SYR IV STA (22:11)
[2023-08-26] MEDS: metroNIDAZOLE 500 MG/100 ML BAG IV SCH (22:12)
[2023-08-26] MEDS: cefTRIAXone SODIUM 2,000 MG in DEXTROSE 5 % MINI-B 50 ML IV SCH (22:12)
[2023-08-27 06:47] LABS: Basophils # (auto) 0.05 K/uL (0.00-0.20); Basophils % (auto) 0.6 %; Eosinophils # (auto) 0.14 K/uL (0.00-0.50); Eosinophils % (auto) 1.7 %; Hematocrit (blood only) 39.5 % (37.0-47.0); Hemoglobin 13.8 g/dl (12.0-16.0); Immature Granulocytes # (auto) 0.03 K/uL (0.01-0.20); Immature Granulocytes % (auto) 0.4 %; Lymphocytes # (auto) 1.46 K/uL (1.20-3.40); Lymphocytes % (auto) 17.7 %; Mean Corpuscular Hemoglobin 31.3 pg (25.0-34.0); Mean Corpuscular Hgb Conc 34.9 g/dL (32.0-36.0); Mean Corpuscular Volume 89.6 fL (80.0-100.0); Mean Platelet Volume 11.2 fL (9.4-12.4); Monocytes # (auto) 0.58 K/uL (0.11-0.59); Neutrophils % (auto) 72.6 %; Platelet Count 216 K/uL (130-400); RDW Coefficient of Variation 12.1 % (11.5-14.5); RDW Standard Deviation 39.8 fL (36.4-46.3); Red Blood Count 4.41 M/uL (4.20-5.40); White Blood Count 8.26 K/ul (4.8-10.8)
[2023-08-27 07:11] LABS: Prothrombin Time 11.1 Seconds (9.0-12.0)
[2023-08-27 07:15] LABS: Albumin Globulin Ratio 1.4 (0.9-2); Albumin Level 3.6 gm/dl (3.4-5.0); BUN Creatinine Ratio 13.9 (10-20); Bilirubin,Total 0.6 mg/dl (0.2-1.0); Calcium 9.5 mg/dl (8.6-10.3); Creatinine Clr Calc Pharmacy 58.5 ml/min; Est GFR (African American) 85.5 ml/min; Est GFR (Non-African American) 73.7 ml/min; Globulin 2.6 gm/dl (2.5-4.0); Potassium 3.4 mmol/L (3.5-5.1); Total Protein 6.2 gm/dl (6.0-8.3)
--- NOTE | 2023-08-27 07:40 | Electrocardiogram Report ---
Test Reason : Blood Pressure : / mmHG Vent. Rate : 088 BPM Atrial Rate : 088 BPM P-R Int : 150 ms QRS Dur : 094 ms QT Int : 374 ms P-R-T Axes : 055 -85 054 degrees QTc Int : 452 ms Normal sinus rhythm Left axis deviation Possible Anterior infarct , age undetermined Abnormal ECG No previous ECGs available Confirmed by Bobby Santillan ([id number]) on 08/27/2023 7:39:35 AM Referred By: Confirmed By:Bobby Santillan
--- NOTE | 2023-08-27 13:21 | Surgery Consultation ---
Date of Consultation August 27, 2023 Assessment & Plan (1) Right shoulder pain: It is unclear if this is related to her gallbladder. The complete absence of any gallbladder symptoms and any pain on RUQ palpation makes referred pain less likely. Potentially this could be related to her prior volleyball with a muscle injury. We reviewed typical symptoms of gallbladder disease. We reviewed it is possible she is having an atypical presentation but at this point without further imaging, I do not know if removal of the gallbladder will or will not impact her pain. (2) Cholelithiasis: Given her atypical symptoms and complete lack of abdominal findings, I do think a HIDA scan is warranted before we proceed to laparoscopic cholecystectomy. We did discuss laparoscopic cholecystectomy in detail with risks of bleeding, infection, conversion to open, postoperative diarrhea, intolerance to foods postoperatively, bile leak, retained stone, need for ERCP. We reviewed that this is an invasive procedure with a 1 to 2-week recovery period. I am reluctant to recommend a laparoscopic cholecystectomy without more definitive signs pointing to gallbladder pathology. We reviewed that the presence of gallstones alone is not an indication for gallstone removal. However, imaging did show some borderline wall thickening which could be consistent with cholecystitis. Given the confusing presentation, we will wait for the HIDA results prior to determining if lap milvia is indicated. OK to advance diet in the interim. (3) Lesion of right [place] kidney: Likely renal cell cancer based on imaging. She should have urology follow-up. In addition her CT scan shows nonspecific mediastinal and hilar lymphadenopathy which also requires evaluation. History of Present Illness Reason for Consultation: right shoulder pain and gallstone Requesting Physician: Dre Byrd Attending Physician: Dre Byrd History of Present Illness 72-year-old woman who presented to the emergency room complaining of right shoulder shoulder pain that started on Tuesday. She had been playing volleyball with a beach volleyball. She subsequently developed a persistent constant stabbing pain in her right shoulder. This was not exacerbated by move ment. It is worse when she is walking. It is better if she is laying down. She specifically denies any pain in her abdomen. She was tolerating a regular diet prior to admission. She has not had any nausea or vomiting. She has never had any prior history of gallbladder disease. She has no family history of gallbladder disease. She denies any fevers or chills. She denies any change in bowel habits. Imaging showed cholelithiasis with possible wall thickening suggestive of acute cholecystitis. Allergies Allergy/AdvReac Type Severity Reaction Status Date / Time hydrocodone AdvReac Intermediate Vomiting Verified 08/03/22 09:51 Home Medications Medication Instructions Recorded Confirmed Type lisinopril 10 mg tablet 10 mg PO DAILY #90 tabs 06/02/23 08/26/23 Rx atorvastatin 10 mg tablet 10 mg PO QPM 08/26/23 08/26/23 History calcium carbonate 500 mg-vitamin 0 tab PO DAILY 08/26/23 08/26/23 History D3 10 mcg (400 unit) tablet (Calcium 500 With D) Patient History Medical History HTN (hypertension) Cyst (solitary) of breast 1994 Surgical History H/O elbow surgery Right Elbow H/O removal of cyst Family History Father Diabetes Mother Alzheimer disease Denies family history of Colon cancer Ovarian cancer Prostate cancer Myocardial infarction Breast cancer Social History Smoking Status: Former smoker Tobacco Type: Cigarettes Second Hand Exposure: Yes; Do You Dip or Chew Tobacco: No; Tobacco Cessation Education Requested by Patient: No Hx Alcohol Use: Yes Alcohol type: wine Hx Substance Use: No Preferred Language: Kiswahili Communication Ability: Effective Visual Impairment: No Limitations Hearing Ability: Normal Crook Operator Required: No Beliefs That Will Affect Care: None marital status: / Current Living Situation: Alone Current Living Situation Comment: Patient does not drive, walks to grocery store, bank, etc. 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 [place] How many Children do You have: 2 Other Information That Helps Us Care for You: No Feels Safe at Home: Yes Safety Concerns: Feels Safe At This Time Childhood Exposure to Second-Hand Smoke: Yes Diet: regular Diet Comment: regular caffeine: Yes during the past year weight has: remained stable Dental Care, Regularly: Yes Physical Activity Frequency: Daily Physical Activity Frequency Comment: walking Seatbelt Use: always Sunscreen Use: Yes Do you think of yourself as: straight/heterosexual Assistive Devices: None Review of Systems Review of Systems: All systems reviewed & are unremarkable except as noted in HPI & below Physical Exam Constitutional: WD/WN, vitals as above Eyes: PERRL, conjunctivae normal, anicteric sclerae Neck: trachea midline, no thyromegaly Respiratory: normal respiratory effort; no respiratory distress Auscultation: + wheezes (expirartory) Cardiovascular: RRR, no murmur, no edema Gastrointestinal (Abdomen): normal bowel sounds, soft, nontender, no hepatosplenomegaly Musculoskeletal: no cyanosis or clubbing, extremities motor strength 5/5 Neurologic: awake; no focal motor deficits Psychiatric: A+Ox3, euthymic affect Results & Data Vital Signs (Past 12 Hours) Vital Signs Temp Pulse Resp BP Pulse Ox O2 Del Method 08/27/23 07:20 36.7 C 66 18 130/74 93 Room Air Laboratory Results 08/27/23 08/26/23 Range/Units 06:10 14:49 WBC 8.26 9.07 (4.8-10.8) K/ul RBC 4.41 5.31 (4.20-5.40) M/uL Hgb 13.8 16.5 H (12.0-16.0) g/dl Hct 39.5 48.0 H (37.0-47.0) % MCV 89.6 90.4 (80.0-100.0) fL MCH 31.3 31.1 (25.0-34.0) pg MCHC 34.9 34.4 (32.0-36.0) g/dL RDW Std Deviation 39.8 39.7 (36.4-46.3) fL RDW Coeff of Simeon 12.1 12.1 (11.5-14.5) % Plt Count 216 270 (130-400) K/uL MPV 11.2 11.0 (9.4-12.4) fL Immature Gran % (Auto) 0.4 0.3 % Neut % (Auto) 72.6 76.8 % Lymph % (Auto) 17.7 16.0 % Mason % (Auto) 7.0 6.1 % Eos % (Auto) 1.7 0.4 % Baso % (Auto) 0.6 0.4 % Neut # (Auto) 6.00 6.96 H (1.40-6.50) K/uL Lymph # (Auto) 1.46 1.45 (1.20-3.40) K/uL Mason # (Auto) 0.58 0.55 (0.11-0.59) K/uL Eos # (Auto) 0.14 0.04 (0.00-0.50) K/uL Baso # (Auto) 0.05 0.04 (0.00-0.20) K/uL Immature Gran # (Auto) 0.03 0.03 (0.01-0.20) K/uL PT 11.1 10.5 (9.0-12.0) Seconds INR 1.0 1.0 (0.9-1.1) APTT 23 (21-31) Seconds PTT Ratio 0.8 Sodium 140 141 (136-145) mmol/L Potassium 3.4 L 3.9 (3.5-5.1) mmol/L Chloride 107 106 (98-107) mmol/L Carbon Dioxide 28 23 (21-32) mmol/L Anion Gap 5 12 H (3-11) BUN 11 15 (6-23) mg/dl Creatinine 0.79 0.98 (0.6-1.2) mg/dl Est Cr Clr Drug Dosing 58.5 49.0 ml/min Est GFR ( Amer) 85.5 65.9 ml/min Est GFR (Non-Af Amer) 73.7 56.8 ml/min BUN/Creatinine Ratio 13.9 15.3 (10-20) Glucose 91 119 H (70-99(Fasting)) mg/dl Calcium 9.5 11.2 H (8.6-10.3) mg/dl Magnesium 2.0 (1.7-2.4) mg/dl Total Bilirubin 0.6 0.8 (0.2-1.0) mg/dl AST 14 18 (13-39) U/L ALT 9 12 (7-52) U/L Alkaline Phosphatase 63 83 (34-104) U/L Troponin I High Sens 3.5 (0-14) pg/ml Total Protein 6.2 D 8.0 (6.0-8.3) gm/dl Albumin 3.6 4.6 (3.4-5.0) gm/dl Globulin 2.6 3.4 (2.5-4.0) gm/dl Albumin/Globulin Ratio 1.4 1.4 (0.9-2) Lipase 28 (11-82) U/L 25-OH Vitamin D Total 23.1 L (30-100) ng/ml Diagnostic Findings ABDOMINAL ULTRASOUND, RIGHT UPPER QUADRANT HISTORY: Acute right upper quadrant abdominal pain shoulder pain, gallstone seen on CXR. COMPARISON: CTA chest of same day FINDINGS: Pancreas: The pancreas demonstrates a normal echotexture. Liver: Unremarkable. Gallbladder: 2.8 cm stone within the gallbladder. Borderline wall thickening measures 3 mm. No definite pericholecystic fluid identified. Negative s onographic Reynoso's sign. CBD: 0.2 cm. Right kidney: The 2.2 cm mass in the superior pole right kidney is not well visualized by ultrasound. No hydronephrosis. IMPRESSION: 1. Cholelithiasis with gallbladder distention and borderline wall thickening suspicious for acute cholecystitis. This could be confirmed with nuclear medicine hepatobiliary scan. 2. No biliary ductal dilation. 3. Probable renal cell carcinoma of the superior pole right kidney is better seen on the same day CTA of the chest. CT angio chest PE protocol CT DOSE: 602.94 mGy.cm HISTORY: 72 years-old Female with ?aortic aneurysm. Acute shortness of breath TECHNIQUE: Multiple CTA images of the chest were obtained after the intravenous administration of 119 ml Optiray. Coronal and sagittal MIPS were obtained from the axial data set and were submitted for review. All measurements were obtained according to NASCET criteria. A dose lowering technique was utilized adhering to the principles of ALARA. COMPARISON: Chest radiograph of same day FINDINGS: CTA: Mild cardiomegaly. No pericardial effusion. Ascending thoracic aorta measures 3.8 x 3.9 cm without aneurysm. Patency of the imaged great vessels. Thoracic aortic tortuosity. Unremarkable pulmonary artery. CT CHEST: Subcentimeter hypodense thyroid nodules. Nonspecific mediastinal and hilar lymphadenopathy. Index right hilar lymph node on image 145 series 4 measures 3.2 x 1.5 cm. AP window/paratracheal adenopathy measures up to 2.9 x 1.6 cm. Additional pathologically enlarged gastrohepatic lymph nodes measure up to 11 mm. Mild periesophageal lymphadenopathy. Mild distal esophageal wall thickening. No pneumothorax, pleural effusion, airspace consolidation or pulmonary edema. 4 mm subpleural solid nodule in the apical posterior segment left upper lobe is favored to be benign. Central airways are patent. There is an enhancing 2.0 x 2.2 cm mass of the superior pole right kidney which is partially imaged. Cholelithiasis with gallbladder wall thickening, distention and mild pericholecystic stranding. There are a few subcentimeter hypodensities of the liver which are too small to characterize and likely benign. Colonic diverticulosis. Unremarkable soft tissues. No acute fracture. IMPRESSION: 1. Enhancing 2.2 cm right renal mass suggestive of renal cell carcinoma. 2. Cholelithiasis with findings suggestive of acute cholecystitis. 3. No pulmonary emboli or thoracic aortic aneurysm. 4. Nonspecific lymphadenopathy of the chest and upper abdomen. Follow-up with hematology/oncology recommended. (1) Right shoulder pain Chronicity: acute Qualified Code(s): M25.511 - Pain in right shoulder
[2023-08-27] MEDS: HYDROmorphone INJ 0.5 MG/0.5 ML SYR IV STA (14:21)
[2023-08-27] MEDS: ACETAMINOPHEN 325 MG TAB PO SCH (14:42)
[2023-08-27] MEDS ORDERED: PROCHLORPERAZINE 5 MG in SYRINGE 4 ML IV PRN (15:37)
[2023-08-27] MEDS: PROCHLORPERAZINE 5 MG in SYRINGE 4 ML IV ONE (16:20)
[2023-08-27] MEDS: lisinopril 10 MG TAB PO SCH (17:33)
[2023-08-27] MEDS: LIDOCAINE 5% 1 PATCH TD STA (17:33)
[2023-08-27 21:35] VITALS: RESP 18
--- NOTE | 2023-08-27 21:54 | Hospitalist Progress Note ---
Date of Service August 27, 2023 Assessment & Plan (1) Cholelithiasis: Plan: -Admit to med/surge on pulse oximetry -Currently stable and non-toxic appearing -Presented to the ED with 3 days of intermittent, severe right posterior shoulder pain -CXR today noted a large gallstone -CT of the Chest with PE protocol was negative for PE but did show >Cholelithiasis with findings suggestive of acute cholecystitis >Enhancing 2.2 cm right renal mass suggestive of renal cell carcinoma. >Nonspecific lymphadenopathy of the chest and upper abdomen. -Cholelithiasis with gallbladder distention and borderline wall thickening suspicious for acute cholecystitis -General surgery has been consulted and will take her to the OR tomorrow depending on HIDA scan results and ongoing symptoms -LFT's are WNL -Will try and obtain HIDA scan on admission, unsure if this can be obtained on the weekend >General Surgery did confirm that not obtaining the HIDA scan would not delay treatment -S/P one dose of Zosyn in the ED, will continue with Ceftriaxone and Flagyl for now -Will start maintenance Plasmalyte on admission -Pain control with Tylenol and dilaudid -PRN narcan for oversedation/respiratory depression -BL SCD's for DVT PPX -appreciate input from Gen Surgery Will try to obtain a MRI of thoracic spine. (2) Lesion of right [place] kidney: Plan: -Patient was noted to have an E=enhancing 2.2 cm right renal mass suggestive of renal cell carcinoma. >This was also noted on gallbladder US today -Patient was unaware of a previous diagnosis -Renal function is stable -Please ensure patient has outpatient Urology referral on discharge (3) Right shoulder pain: Plan: -Likely due to her cholelithiasis with likely associated acute cholecystitis -Plan as per cholelithiasis (4) Dyslipidemia: Plan: -Continue statin (5) HTN (hypertension): Plan: -Patient noted to be hypertensive at 174/109 in the ED -This was taken shortly after she received the news of the right kidney lesion -Likely a combination of anxiety and pain -Will let her get a dose of dilaudid for pain and reassess -will resume lisinopril Admission and Anticipated Discharge Date Admission Date: August 26, 2023 Subjective Patient reports having pain on her upper spine. Review of Systems Review of Systems: All systems reviewed & are unremarkable except as noted in HPI & below Physical Exam Physical Exam: General: non-toxic appearing HEENT: Normocephalic, atraumatic Chest/Pulm: No respiratory distress, symmetrical chest expansion, clear breath sounds throughout Cardiac: RRR, no murmurs noted Abdomen: Nsoft, non-tender to palpation throughout, negative watters's sign Musculoskeletal: Symmetrical and without signs of acute trauma, upper and lower extremities with full ROM, no atrophy, spasticity, or flaccidity. Tenderness to right paraspinal muscle on thoracic spine Extremities: Radial, dorsalis pedis, and posterior tibial pulses are intact and symmetrical, no edema noted in the BL LE's Results & Data Results & Data Vital Signs (Past 12 Hours) Vital Signs Temp Pulse Resp BP Pulse Ox O2 Del Method 08/27/23 21:34 36.6 C 79 18 166/96 H 98 Room Air 08/27/23 15:09 36.7 C 72 14 199/90 H 92 Room Air PG Care Time/CCT Total # of Minutes Spent Total Time Spent with Patient: Total time spent is greater than 50% in coordination of care (as documented) at patient's floor/unit and/or counseling patient: Coding Level of Care Code 31654 SUB INP/OBS CARE 2/35MIN Diagnoses Cholelithiasis K80.20 Lesion of right [place] kidney N28.9 Right shoulder pain M25.511 Chronicity: acute Dyslipidemia E78.5 HTN (hypertension) I10 (3) Right shoulder pain Chronicity: acute Qualified Code(s): M25.511 - Pain in right shoulder
[2023-08-28 07:16] VITALS: O2SAT 93
[2023-08-28 07:26] LABS: Basophils # (auto) 0.02 K/uL (0.00-0.20); Basophils % (auto) 0.3 %; Eosinophils # (auto) 0.09 K/uL (0.00-0.50); Eosinophils % (auto) 1.3 %; Hematocrit (blood only) 40.9 % (37.0-47.0); Immature Granulocytes # (auto) 0.02 K/uL (0.01-0.20); Immature Granulocytes % (auto) 0.3 %; Lymphocytes % (auto) 17.8 %; Mean Corpuscular Hgb Conc 34.2 g/dL (32.0-36.0); Mean Corpuscular Volume 90.5 fL (80.0-100.0); Mean Platelet Volume 11.5 fL (9.4-12.4); Monocytes # (auto) 0.46 K/uL (0.11-0.59); Monocytes % (auto) 6.8 %; Neutrophils # (auto) 4.96 K/uL (1.40-6.50); Neutrophils % (auto) 73.5 %; Platelet Count 208 K/uL (130-400); RDW Coefficient of Variation 11.9 % (11.5-14.5); Red Blood Count 4.52 M/uL (4.20-5.40); White Blood Count 6.75 K/ul (4.8-10.8)
[2023-08-28 07:40] LABS: Albumin Globulin Ratio 1.4 (0.9-2); Albumin Level 3.6 gm/dl (3.4-5.0); BUN Creatinine Ratio 13.4 (10-20); Bilirubin,Total 0.6 mg/dl (0.2-1.0); Calcium 9.8 mg/dl (8.6-10.3); Est GFR (African American) 100.4 ml/min; Est GFR (Non-African American) 86.6 ml/min; Globulin 2.5 gm/dl (2.5-4.0); Potassium 3.2 mmol/L (3.5-5.1); Total Protein 6.1 gm/dl (6.0-8.3)
[2023-08-28 07:48] LABS: Prothrombin Time 11.3 Seconds (9.0-12.0)
--- NOTE | 2023-08-28 11:45 | Surgery Progress Note ---
Date of Service August 28, 2023 Assessment & Plan (1) Right shoulder pain: Plan: MRI thoracic spine done - result pending. (2) Cholelithiasis: Plan: Given her atypical symptoms and complete lack of abdominal findings, I do think a HIDA scan is warranted before we proceed to laparoscopic cholecystectomy. We did discuss laparoscopic cholecystectomy in detail with risks of bleeding, infection, conversion to open, postoperative diarrhea, intolerance to foods postoperatively, bile leak, retained stone, need for ERCP. We reviewed that this is an invasive procedure with a 1 to 2-week recovery period. I am reluctant to recommend a laparoscopic cholecystectomy without more definitive signs pointing to gallbladder pathology. We reviewed that the presence of gallstones alone is not an indication for gallstone removal. However, imaging did show some borderline wall thickening which could be consistent with cholecystitis. Given the confusing presentation, we will wait for the HIDA results prior to determining if lap milvia is indicated. Tolerating advancement of diet without any abdominal symptoms today (did vomit with MRI yesterday). (3) Lesion of right [place] kidney: Plan: Likely renal cell cancer based on imaging. She should have urology follow-up. In addition her CT scan shows nonspecific mediastinal and hilar lymphadenopathy which also requires evaluation. Admission and Anticipated Discharge Date Admission Date: August 26, 2023 Subjective Vomited during the MRI yesterday. Since then has been able to tolerate PO diet with no abdominal pain, no nausea/ vomiting. Shoulder pain is slightly better. Physical Exam Constitutional: WD/WN, vitals as above Eyes: PERRL, conjunctivae normal, anicteric sclerae Cardiovascular: RRR, no murmur, no edema Gastrointestinal (Abdomen): normal bowel sounds, soft, nontender, no hepatosplenomegaly Musculoskeletal: no cyanosis or clubbing, extremities motor strength 5/5 Neurologic: awake; no focal motor deficits Psychiatric: A+Ox3, euthymic affect Results & Data Vital Signs (Past 12 Hours) Vital Signs Temp Pulse Resp BP Pulse Ox O2 Del Method 08/28/23 07:15 36.8 C 66 18 183/83 H 93 Room Air Laboratory Results Abnormal lab results 08/28/23 Range/Units 06:24 Potassium 3.2 L (3.5-5.1) mmol/L (1) Right shoulder pain Chronicity: acute Qualified Code(s): M25.511 - Pain in right shoulder
[2023-08-28] MEDS: POLYETHYLENE (MIRALAX) 17 GM PACK PO SCH (11:56)
--- NOTE | 2023-08-28 20:40 | Hospitalist Progress Note ---
Date of Service August 28, 2023 Assessment & Plan (1) Cholelithiasis: Plan: -Admit to med/surge on pulse oximetry -Currently stable and non-toxic appearing -Presented to the ED with 3 days of intermittent, severe right posterior shoulder pain -CXR today noted a large gallstone -CT of the Chest with PE protocol was negative for PE but did show >Cholelithiasis with findings suggestive of acute cholecystitis >Enhancing 2.2 cm right renal mass suggestive of renal cell carcinoma. >Nonspecific lymphadenopathy of the chest and upper abdomen. -Cholelithiasis with gallbladder distention and borderline wall thickening suspicious for acute cholecystitis -General surgery has been consulted and will take her to the OR tomorrow depending on HIDA scan results and ongoing symptoms -LFT's are WNL -Will try and obtain HIDA scan on admission, unsure if this can be obtained on the weekend >General Surgery did confirm that not obtaining the HIDA scan would not delay treatment -S/P one dose of Zosyn in the ED, will continue with Ceftriaxone and Flagyl for now -Will start maintenance Plasmalyte on admission -Pain control with Tylenol and dilaudid -PRN narcan for oversedation/respiratory depression -BL SCD's for DVT PPX -appreciate input from Gen Surgery MRI of thoracic spine obtained. awaiting this to be read. (2) Lesion of right [place] kidney: Plan: -Patient was noted to have an E=enhancing 2.2 cm right renal mass suggestive of renal cell carcinoma. >This was also noted on gallbladder US today -Patient was unaware of a previous diagnosis -Renal function is stable -Please ensure patient has outpatient Urology referral on discharge (3) Right shoulder pain: Plan: -Likely due to her cholelithiasis with likely associated acute cholecystitis -Plan as per cholelithiasis (4) Dyslipidemia: Plan: -Continue statin (5) HTN (hypertension): Plan: -Patient noted to be hypertensive at 174/109 in the ED -This was taken shortly after she received the news of the right kidney lesion -Likely a combination of anxiety and pain -Will let her get a dose of dilaudid for pain and reassess -will resume lisinopril Admission and Anticipated Discharge Date Admission Date: August 26, 2023 Subjective 72 yo female reports no new symptoms. Symptoms appear to be better. Review of Systems Review of Systems: All systems reviewed & are unremarkable except as noted in HPI & below Physical Exam Physical Exam: General: non-toxic appearing HEENT: Normocephalic, atraumatic Chest/Pulm: No respiratory distress, symmetrical chest expansion, clear breath sounds throughout Cardiac: RRR, no murmurs noted Abdomen: Nsoft, non-tender to palpation throughout, negative watters's sign Musculoskeletal: Symmetrical and without signs of acute trauma, upper and lower extremities with full ROM, no atrophy, spasticity, or flaccidity. Tenderness to right paraspinal muscle on thoracic spine Extremities: Radial, dorsalis pedis, and posterior tibial pulses are intact and symmetrical, no edema noted in the BL LE's Results & Data Results & Data Vital Signs (Past 12 Hours) Vital Signs Temp Pulse Resp BP Pulse Ox O2 Del Method 08/28/23 15:00 36.7 C 66 18 142/81 H 93 Room Air PG Care Time/CCT Total # of Minutes Spent Total Time Spent with Patient: Total time spent is greater than 50% in coordination of care (as documented) at patient's floor/unit and/or counseling patient: Coding Level of Care Code 50543 SUB INP/OBS CARE 2/35MIN Diagnoses Cholelithiasis K80.20 Lesion of right [place] kidney N28.9 Right shoulder pain M25.511 Chronicity: acute Dyslipidemia E78.5 HTN (hypertension) I10 (3) Right shoulder pain Chronicity: acute Qualified Code(s): M25.511 - Pain in right shoulder
[2023-08-28] MEDS: POTASSIUM CHLORIDE CRTAB 20 MEQ TABCR PO STA (21:34)
--- NOTE | 2023-08-28 21:38 | Magnetic Resonance Report ---
MR thoracic spine wo con CLINICAL HISTORY: pain paraspinal muscle R of thoracic spine: T5-7 TECHNIQUE: Multiplanar sequences through the thoracic spine were obtained, without intravenous contra st. Comparison: Comparison is made to CT chest 08/26/2023 FINDINGS: The alignment is anatomical. Disks are normal in height and signal. The spinal canal and neural foramina are patent. The spinal ligaments are intact, without evidence of disruption or abnormal signal intensity. The spi nal cord is normal in signal intensity and there is no evidence of cord contusion. There is no eviden ce of an extradural, intradural, extramedullary or intramedullary lesion. Visualized soft tissues are normal. A few bone hemangiomas are seen in the thoracic spine. IMPRESSION: No evidence of cord compression, significant neuroforaminal narrowing or ligamentous injury. ACT 112: Negative or not required by law. Electronically signed by: Baron Degroot M.D. 08/28/2023 9:36 PM
[2023-08-29 06:58] LABS: Basophils # (auto) 0.05 K/uL (0.00-0.20); Basophils % (auto) 0.8 %; Eosinophils # (auto) 0.23 K/uL (0.00-0.50); Eosinophils % (auto) 3.9 %; Hematocrit (blood only) 39.4 % (37.0-47.0); Hemoglobin 13.9 g/dl (12.0-16.0); Immature Granulocytes # (auto) 0.01 K/uL (0.01-0.20); Immature Granulocytes % (auto) 0.2 %; Lymphocytes % (auto) 20.3 %; Mean Corpuscular Hemoglobin 31.2 pg (25.0-34.0); Mean Corpuscular Hgb Conc 35.3 g/dL (32.0-36.0); Mean Corpuscular Volume 88.3 fL (80.0-100.0); Mean Platelet Volume 11.3 fL (9.4-12.4); Monocytes # (auto) 0.38 K/uL (0.11-0.59); Monocytes % (auto) 6.4 %; Neutrophils # (auto) 4.03 K/uL (1.40-6.50); Neutrophils % (auto) 68.4 %; Platelet Count 211 K/uL (130-400); RDW Standard Deviation 38.8 fL (36.4-46.3); Red Blood Count 4.46 M/uL (4.20-5.40)
[2023-08-29 07:25] LABS: INR 1.1 (0.9-1.1); Prothrombin Time 12.1 Seconds (9.0-12.0)
[2023-08-29 07:27] VITALS: BP 167/93; PULSE 61; TEMP 97.7
[2023-08-29 07:32] LABS: Alanine Aminotransferase 12 U/L (7-52); Albumin Globulin Ratio 1.5 (0.9-2); Albumin Level 3.5 gm/dl (3.4-5.0); Alkaline Phosphatase 60 U/L (34-104); Anion Gap 4 (3-11); Aspartate Aminotransferase 16 U/L (13-39); BUN Creatinine Ratio 10.5 (10-20); Bilirubin,Total 0.5 mg/dl (0.2-1.0); Blood Urea Nitrogen 8 mg/dl (6-23); C Reactive Protein < 0.50 mg/dl (0-0.5); Calcium 9.5 mg/dl (8.6-10.3); Carbon Dioxide 28 mmol/L (21-32); Chloride 110 mmol/L (98-107); Creatinine Clr Calc Pharmacy 60.8 ml/min; Est GFR (African American) 89.6 ml/min; Est GFR (Non-African American) 77.3 ml/min; Globulin 2.4 gm/dl (2.5-4.0); Glucose 90 mg/dl (70-99(Fasting)); Magnesium 1.9 mg/dl (1.7-2.4); Potassium 3.6 mmol/L (3.5-5.1); Sodium 142 mmol/L (136-145); Total Protein 5.9 gm/dl (6.0-8.3)
--- NOTE | 2023-08-29 11:22 | Nuclear Medicine Report ---
NM hepatobiliary CLINICAL HISTORY: 72 years-old Female with shoulder pain / abnormal gallbladder image. Acute right u pper quadrant abdominal pain TECHNIQUE: Sequential anterior abdominal images were obtained through 60 minutes following the intra venous administration of 5.3 mCi of technetium-99m Choletec. COMPARISON: Ultrasound 08/26/2023 FINDINGS: There is prompt, uniform accumulation of the tracer by the liver. There is normal filling of the int rahepatic ducts, common bile duct and normal excretion of the tracer into the duodenum. The gallblad juan fills normally. IMPRESSION: Normal hepatobiliary study. No scintigraphic evidence for acute cholecystitis or common bile duct obstruction. ACT 112: Negative or not required by law. The above report was generated using voice recognition software. It may contain grammatical, syntax o r spelling errors. Electronically signed by: Cesar Peña M.D. 08/29/2023 11:20 AM
--- NOTE | 2023-08-29 13:11 | Discharge Summary ---
Date of Service August 29, 2023 Admission HPI Per Admitting Provider Gina Valles is a 72 year old female with a PMH significant for HTN and dyslipidemia who presented to the [facility] ED on 08/26/23 with a chief complaint of right shoulder pain. She was noted to be hypertensive at 174/109, tachycardic at 98, but otherwise stable. Labs were significant for an AG of 12 with bicarb WNL but CBC, CMP, and high sen trop were WNL. CXR was read as 1. No acute cardiopulmonary abnormality is identified 2. Question aneurysmal dilatation of the ascending thoracic aorta. This may be artifactual. Correlation with a chest CT is recommended. 3. A large gallstone is seen in the right upper quadrant.. Chest CTA was read as 1. Enhancing 2.2 cm right renal mass suggestive of renal cell carcinoma. 2. Cholelithiasis with findings suggestive of acute cholecystitis. 3. No pulmonary emboli or thoracic aortic aneurysm. 4. Nonspecific lymphadenopathy of the chest and upper abdomen. Follow-up with hematology/oncology recommended.. Gallbladder US was read as 1. Cholelithiasis with gallbladder distention and borderline wall thickening suspicious for acute cholecystitis. This could be confirmed with nuclear medicine hepatobiliary scan. 2. No biliary ductal dilation. 3. Probable renal cell carcinoma of the superior pole right kidney is better seen on the same day CTA of the chest... Prior to admission the patient was given 4 mg IV morphine and a dose of zosyn. At the time of the exam the patient was sitting in bed. She is tearful after hearing the results of her chest CT. She states that she started to develop acute right posterior shoulder pain which woke her up from sleep at 0400 on 08/23. The patient has been sharp/stabbing, a 10/10 at it's worst, and has not significantly changed with eating/drinking. She thought it was musculoskeletal pain and tried topical agents, tylenol, and Ibuprofen without improvement. She denies fever, chills, chest pain, SOB, cough, abd pain, nausea, vomiting, dysuria, hematuria, melena, diarrhea, LE swelling, and recent trauma. I explained to her that we will be obtaining a HIDA scan for further assessment. We will make her NPO at midnight in case of surgery tomorrow. We discussed the lesion noted on her right kidney. I explained that renal cell carcinoma is on the differential, but we will need to wait for outpatient biopsy results for conclusive answers. She is a full code and her brother is her POA. Please refer to Dr. Moeller's attestation for any changes to the treatment plan Principal Diagnosis thoracic back pain Discharge Exam General: non-toxic appearing HEENT: Normocephalic, atraumatic Chest/Pulm: No respiratory distress, symmetrical chest expansion, clear breath sounds throughout Cardiac: RRR, no murmurs noted Abdomen: Nsoft, non-tender to palpation throughout, negative watters's sign Musculoskeletal: Symmetrical and without signs of acute trauma, upper and lower extremities with full ROM, no atrophy, spasticity, or flaccidity. Tenderness to right paraspinal muscle on thoracic spine Extremities: Radial, dorsalis pedis, and posterior tibial pulses are intact and symmetrical, no edema noted in the BL LE's Discharge Data Allergies Allergy/AdvReac Type Severity Reaction Status Date / Time hydrocodone AdvReac Intermediate Vomiting Verified 08/03/22 09:51 Consultations 08/26/23 17:50 Consult General Surgery Routine ED Decision to Admit Stat Procedures Performed Operation Date: 08/27/23 13:00 <No data on this case meets the specified criteria> Ordered Studies 08/26/23 15:46 CT angio chest PE protocol Stat US gallbladder Stat 08/28/23 09:48 MR thoracic spine wo con Routine Hospital Course (1) Cholelithiasis: Patient was admitted for concern of cholelithiasis, due to presenting to the ED with 3 days of intermittent, severe right posterior shoulder pain -CXR noted a large gallstone -CT of the Chest with PE protocol was negative for PE but did show >Cholelithiasis with findings suggestive of acute cholecystitis >Enhancing 2.2 cm right renal mass suggestive of renal cell carcinoma. >Nonspecific lymphadenopathy of the chest and upper abdomen. -Cholelithiasis with gallbladder distention and borderline wall thickening suspicious for acute cholecystitis -General surgery has been consulted but clinicalluy her abdominal exam was benign Supected this to be more MSK HIDA scan was negative and MRI of thoracic spine was also negative. -LFT's are WNL -Symptoms improved. On a side note, patient had significant nausea and vomiting from narcotics, however tylenol appeared to control the pain. will recommend close followup/ (2) Lesion of right [place] kidney: -Patient was noted to have an E=enhancing 2.2 cm right renal mass suggestive of renal cell carcinoma. >This was also noted on gallbladder US today -Patient was unaware of a previous diagnosis -Renal function is stable -Urology referral will be placed. (3) Right shoulder pain: -Likely MSK, she did play volleyball a few days prior to hospital. (4) Dyslipidemia: -Continue statin (5) HTN (hypertension): -Patient noted to be hypertensive at 174/109 in the ED -This was taken shortly after she received the news of the right kidney lesion -Likely a combination of anxiety and pain -improved Total Time Total Time Spent Total Time Spent (In Minutes): 32 Discharge Plan Discharge Items Patient Disposition: Home - Self-Care Reason For Visit: CHOLELITHIASIS WITH POSSIBLE CHOLECYSTITIS Discharge Diagnosis: cholelithiasis with possible cholecystitis Activity: Resume your previous activity Non-emergency contact: Primary Care Provider Call non-emergency contact if: you have any medication questions Follow-up/Referrals: Job Brown III, CRNP [Primary Care Provider] - 09/05/23 9:20 am (DR ROMERO) Gregoria Edwards MD [Physician] - Diet: Low Sodium (2gm) Addtl Attending Provider Instructions: You were seen for right upper back pain. We were concerned that this could be a symptoms of a gallbladder problem. Thankfully your imaging ruled this out. You also improved with tylenol. I will recommend a followup with your PCP in 1-2 weeks. Limit exertional physical activity in the short term. Your may benefit from a short outpatient rehab. Pending Studies at Discharge: No Stand-Alone Forms: My [facility], Smoking Cessation Medications and DC Order Prescriptions: New acetaminophen 325 mg Tablet 650 mg PO QID Qty: 120 0RF Continued lisinopril 10 mg tablet 10 mg PO DAILY Qty: 90 3RF calcium carbonate-vitamin D3 [Calcium 500 With D] 500 mg-10 mcg (400 unit) tablet 0 tab PO DAILY Rx Instructions: Unable to verify OTC meds with patient at this date/time. Held atorvastatin 10 mg tablet 10 mg PO QPM Hold Instructions: Resume on 09/05/23. Rx Instructions: TAKE 1 TABLET BY MOUTH EVERY EVENING Discharge Orders: Discharge Order (Routine); Ordered 08/29/23 Ordered By: Dre Chawla/Other Patient Handouts: Relieving Tension in Your Back, Back Care Every Day Admission Data Admit Date/Time: 08/26/23 18:16 Attending Provider: Dre Byrd Admit Provider: Jorge Moeller Primary Care Provider: Job Brown III Other Providers: Jorge Moeller; Gregoria Edwards Other Interventions: Discharge Summary Assessment (RN) Last Done: 08/29/23 13:29 Coding Level of Care Code 44431 INP/OBS DISCH >30 MIN Diagnoses Cholelithiasis K80.20 Lesion of right [place] kidney N28.9 Right shoulder pain M25.511 Chronicity: acute Dyslipidemia E78.5 HTN (hypertension) I10
--- NOTE | 2023-08-29 13:39 | Communication Note ---
Date of Service: August 29, 2023 Patient not examined, entered room and she was speaking with her building energy consultant. ANGELINE negative for acute cholecystitis. Recommend advancing diet and discharge per medicine service. Discussed with Dr. Byrd. ANGELINE 08/29/2023 FINDINGS: There is prompt, uniform accumulation of the tracer by the liver. There is normal filling of the intrahepatic ducts, common bile duct and normal excretion of the tracer into the duodenum. The gallbladder fills normally. IMPRESSION: Normal hepatobiliary study. No scintigraphic evidence for acute cholecystitis or common bile duct obstruction.
== END 2023-08-29 14:44 | disposition home or self-care (01) | DRG 445 ==
LOC: ED 14:13 → SUATTDRO 18:16 → 3N 18:16
DX: K80.00 Calculus of gallbladder with acute cholecystitis without obstruction; Z87.891 Personal history of nicotine dependence; I10 Essential (primary) hypertension; Z83.3 Family history of diabetes mellitus; E78.5 Hyperlipidemia, unspecified; C64.1 Malignant neoplasm of right kidney, except renal pelvis

== ENCOUNTER 2024-02-02 05:40 | Inpatient (IN) ==
--- NOTE | 2023-11-07 10:51 | Anesthesiology Consultation ---
Date of Service November 07, 2023 Assessment & Plan (1) Encounter for pre-operative examination: - Infectious disease screening: Per assessment on 11/07/23: No known recent infectious disease contacts or current infectious disease symptoms. - PCP visit (09/14/23): "This is a 73-year-old woman who was recently admitted to the hospital for biliary colic with cholelithiasis. There is also likely a musculoskeletal component to the pain she was experiencing. The entire emergency department and hospital visit records were reviewed in full including personally reviewing laboratory studies and diagnostic imaging. She responded very well to osteopathic manipulation with Dr. Martínez. Unfortunately, they did notice a lesion in the right kidney which is concerning for a renal cell carcinoma. She does need to see urology. Unfortunately she misunderstood the information was given to her and declined the appointment. Message was sent to the urology office to get her scheduled as quickly as possible so we can pursue this new lesion. No additional changes at this time." Chart Review Chart Review: Acceptable Risk for Surgery (pending evaluation DOS) and Patient NOT seen in Pre Admission Testing History Surgery Operation Date: 11/17/23 09:40 Proposed Procedures p Robotic Laparoscopic Assisted Partial Nephrectomy, Right - Dalton Contreras MD Height/Weight Height: 5 ft 6 in Weight: 63.503 kg Allergies Allergy/AdvReac Type Severity Reaction Status Date / Time hydrocodone AdvReac Intermediate Vomiting Verified 11/07/23 09:43 Medications Home Medications Medication Instructions Recorded Confirmed Last Taken atorvastatin 10 mg tablet 10 mg PO QPM 08/26/23 11/07/23 Unknown calcium carbonate 500 mg-vitamin 1 tab PO QAM 08/26/23 11/07/23 Unknown D3 10 mcg (400 unit) tablet (Calcium 500 With D) acetaminophen 325 mg tablet 650 mg PO QID PRN Pain 11/07/23 11/07/23 Unknown lisinopril 10 mg tablet 10 mg PO QAM 11/07/23 11/07/23 Unknown Past Medical History Medical History Biliary colic Cholelithiasis Dyslipidemia Hilar mass Right Hypertension Lesion of right [place] kidney Osteopenia Renal mass Right Past Family History Family History Father Diabetes Mother Alzheimer disease Denies family history of Colon cancer Ovarian cancer Prostate cancer Myocardial infarction Breast cancer Past Surgical History Surgical History H/O elbow surgery (2022) Right Elbow History of lumpectomy of right breast (1989) benign Hx of colonoscopy Social History Smoking Status: Never smoker Do You Dip or Chew Tobacco: No Hx Alcohol Use: Yes Alcohol type: wine alcohol intake frequency: holidays/special occasions only Hx Substance Use: No substance use type: does not use Lab Results Anesthesia Preop Results Results Anesthesia Widget: WBC 6.90 K/uL (4.8-10.8) 10/26/23 Hgb 14.9 g/dL (12.0-16.0) 10/26/23 Hct 45.2 % (37.0-47.0) 10/26/23 Plt 254 K/uL (130.0-400.0) 10/26/23 Na 143 mmol/L (136-145) 10/26/23 K 4.3 mmol/L (3.5-5.1) 10/26/23 Cl 105 mmol/L (98-107) 10/26/23 CO2 26 mmol/L (21-32) 10/26/23 BUN 17 mg/dL (7-18) 10/26/23 Creat 1.0 mg/dL (0.6-1.2) 10/26/23 Glucose Level 100 mg/dL (70-99) H 10/26/23 Testing Laboratory Results Urine culture (10/26/23): No significant growth Electrocardiogram Date: 08/26/23 NSR at 88bpm. LAD. Possible anterior infarct, age undetermined. EKG reviewed by [facility] at 09/14/23 visit. No noted cardiopulmonary limiting complaints and no SOB with stairs per PAT RN interview 11/07/23* Other Testing Chest CT Date: 11/04/23 1. An enhancing lesion is again seen in the upper pole of the right kidney. A renal cell carcinoma remains the diagnosis of exclusion. 2. Mediastinal and right hilar adenopathy is unchanged. This is pathologically indeterminate but suspicious for neoplasm. This would be atypical for metastatic renal cell carcinoma. 3. There is subtle abnormal soft tissue thickening in the left hilum which measures up to 2.5 cm. This is indeterminant, and although this could represent parenchymal scarring a hilar mass lesion/neoplasm is suspected. Follow up with pulmonology is recommended. 4. There is no airspace consolidation typical for pneumonia or pleural effusion. 5. Pulmonary and pleural-based nodules as above. Attention follow-up is recommended. 6. Cardiomegaly. 7. Cholelithiasis.
--- OUTSIDE RECORDS SUMMARY | 2024-02-02 05:45 | External Medical Summary | Summary of Care ---
Author Name Unknown Organization [facility] Address [address] [place] [facility] [address] Phone [phone] Care Team Providers Care Power Line Installer And Repairer Name Role Phone Job Brown Primary Care Provider [phone] Encounter Details Date Type Department Care Team (Late st Contact Info) Description 01/31/2024 Orders Only Laboratory [place] Pretty Valles [address] [place] [id number] Dalton Contreras MD [address] [place] [address] [place] [id number] Renal vascular disorder* Allergies No known active allergiesdocumented as of this encounter (statuses as of 01/31/2024) Medications Medication Sig Dispensed Refills Start Date End Date Status potassium chloride ER 10 MEQ TBCRIndications:Essen tial hypertension with goal blood pressure less than 140/90 take 1 tablet by mouth once daily 90 Tab 1 12/25/2018 Active Additional Information Patient not taking.Reported on 01/10/2023 Lisinopril-hydroCHLOR Othiazide 10-12.5 MG per tabletIndications:Ess ential hypertension with goal blood pressure less than 140/90 take 1 tablet by mouth once daily 90 Tab 1 12/25/2018 Active Additional Information Patient not taking.Reported on 01/10/2023 Atorvastatin Calcium 10 MG Oral Tablet (Lipitor) Take 1 Tablet by mouth in the morning. Active Lisinopril 10 MG Oral Tablet (Prinivil) Take 1 Tablet by mouth in the morning. Active Ibuprofen 200 MG Oral Capsule Take 1 Capsule by mouth every 4 hours as needed. Active Calcium Carb-Cholecalciferol 600-10 MG-MCG Oral Tablet (Calcium + Vitamin D3) Take 1 Tablet by mouth every afternoon. Active documented as of this encounter (statuses as of 01/31/2024) Active Problems Problem Noted Date Diagnosed Date Essential hypertension with goal blood pressure less than 140/90 02/04/2016 Routine general medical exam ination at a health care facility 05/06/2011 Overview: PCP Freddy LAURENT NEED: zoster, 06/03 mammo WNL 05/02 referred to female for pocket cutter/breast exam Considering scope vs FOB DIFFUS CYSTIC MASTOPATHY documented as of this encounter (statuses as of 01/31/2024) Immunizations Name Administration Dates Next Due COVID-19 mRNA, LNP-s, No Pre serve, 2-Dose Series ([employer]) 03/19/2021,07/16/2020,06/25/2020 Pneumococcal Conjugate Vacc, 13 Valent (Prevnar) 04/24/2015 Pneumococcal Polysaccharide PPV23 (Pneumovax) 03/06/2014 Season Influenza, Quad, PF, Adjuvanted, 65+ Yrs, IM (FLUAD) 02/04/2020 Seasonal Influenza Virus Vac cine, Unspecified Formulation 01/08/2023 Seasonal Influenza, PF, 6 M & above, IM , (FluLaval or Fluzone) 02/23/2017 Seasonal Influenza, Quadriva lent, No Preserve, IM 04/30/2016 Seasonal Influenza, Trivalen t, (IIV3), with Preserv, (Fluzone) 03/31/2015,03/27/2014,03/31/2011 Seasonal Influenza, Trivalen t, Adjuvanted, 65+ YRS, PF, (Fluad) 02/03/2019 TDAP, Age 7 and older, IM (Adacel) 05/06/2011 Varicella Zoster Vaccine (Adult) 05/25/2018 Zoster Vaccine Recombinant (Shingrix) 05/25/2018 ,01/21/2018 documented as of this encounter Social History Tobacco Use Types Packs/Day Years Used Date Smoking Tobacco: Never Smokeless Tobacco: Never Alcohol Use Standard Drinks/Week Comments Not Currently 0 (1 standard drink = 0.6 oz pur e alcohol) rare PHQ-2 Answer Date Recorded PHQ Adult Total Score 1 01/10/2023 Hunger Vital Sign Answer Date Recorded Within the past 12 months, y ou worried that your food would run out before you got the money to buy more. Never true 01/09/20 22 Within the past 12 months, t he food you bought just didn't last and you didn't have money to get more. Never true 01/08/2022 Utilities Answer Date Recorded Do you have trouble paying y our heating, water, or electric bill? (Adult - for ages 18 years and over) Not on file 11/08/2023 Is your family able to pay t he heat, water, or electric bill? (Household - for ages 0-17 years) Not on file 11/08/2023 Does your family have access to good internet? (Household - for ages 0-17 years) Not on file 11/08/2023 Social Connections Answer Date Recorded How often do you feel lonely or isolated from those around you? (Adult - for ages 18 years and over) Not on file 11/08/2023 Sex and Gender Information Value Date Recorded Sex Assigned at Female 12/29/2018 2:47 PM EDT Gender Identity Female 12/29/2018 2:47 PM EDT Sexual Orientation Straight 01/08/2022 12 :56 PM EDT Job Start Date Occupation Industry Not on file Not on file Not on file documented as of this encounter Plan of Treatment Health Maintenance Due Date Last Done Comments Albumin/Creatinine Ratio 1968 FOBT ANNUALLY,AGES 18-90 07/29/2017 07/29/2016 Zoster Vaccines (3 of 3) 07/20/2018 019, 05/25/2018, 01/21/2018 *BASELINE EKG FOR HTN 12/19/2020 DTap/Tdap Vaccines (2 - Td or Tdap) 05/06/2021 05/06/2011 Depression Screening 01/11/2024 01/10/2023 COVID-19 Vaccine (2022- season) 2024 04/10/2023, 04/07/2022, 03/19/2021, Additional history exists Influenza Vaccine (FLU shot) (#1) 2024 01/08/2023, 06/23/2020, 02/04/2020, Additional history exists GFR 12/25/2024 12/26/2023, 06/0 09/2023, 08/10/2022, Additional history exists DXA Scan 10/22/2028 10/22/2021 Hepatitis C Screening Completed 08/30/2014 Pneumococcal Vaccine: 65+ Years Completed 04/24/2015, 03/06/2014, 02/22/2014 Fecal Occult Blood Test Discontinued 07/29/2016 Colonoscopy Discontinued HPV (Gardasil) Vaccine Aged Out No lo nger eligible based on patient's age to complete this topic Hepatitis B Vaccine Aged Out No longe r eligible based on patient's age to complete this topic MENINGOCOCCAL (MENACTRA/MENVEO) Aged Out No longer eligible based on patient's age to complete this topic documented as of this encounter Medical Devices Not on filedocumented as of this encounter Visit Diagnoses Diagnosis Renal vascular disorder- Primary Vascular disorders of kidney documented in this encounter Care Teams Power Line Installer And Repairer Relationship Specialty Start Date End Date Job Brown CRNP [address] [place] [address] PCP - General Nurse Practitioner 01/02/20 documented as of this encounter
--- OUTSIDE RECORDS SUMMARY | 2024-02-02 05:45 | External Medical Summary | Summary of Care ---
Author Name Unknown Organization [facility] Address [address] [facility] [place] [address] Phone [phone] Care Team Providers Care Relocation Coordinator Name Role Phone Job Brown Primary Care Provider Reason for Visit * Reason Comments Outpatient Testing Encounter Details Date Type Department Care Team (Late st Contact Info) Description 01/31/2024 2:30 PM EDT Laboratory Laboratory [place] Pretty Valles [address] [place] [id number] [facility] [address] [facility] [place] [id number] Renal vascular disorder* Allergies No known active [...] mammo WNL 05/02 referred to female for real estate salesperson/breast exam Considering scope vs FOB DIFFUS CYSTIC MASTOPATHY documented as of this encounter (statuses as of 01/31/2024) Immunizations Name Administration Dates Next Due COVID-19 mRNA, LNP-s, No Pre serve, 2-Dose Series ([employer]) 03/19/2021,07/16/2020,06/25/2020 Pneumococcal Conjugate Vacc, 13 Valent (Prevnar) [...] as of this encounter Plan of Treatment Pending Results Name Type Priority Associated Diagnoses Date /Time CULTURE, URINE, QUANTITATIVE Lab Routine Renal vascular disorder 01/31/2024 2:32 PM EDT Scheduled Orders Name Type Priority Associated Diagnoses Orde r Schedule CULTURE, URINE, QUANTITATIVE Lab Routine Renal vascular disorder Expected: 01/31/2024, Expires: 01/30/2025 Health Maintenance Due Date Last Done Comments Albumin/Creatinine Ratio 1968 FOBT ANNUALLY,AGES 18-90 07/29/2017 07/29/2016 Zoster Vaccines (3 of 3) 07/20/2018 019, 05/25/2018, 01/21/2018 *BASELINE EKG FOR HTN 12/19/2020 DTap/Tdap Vaccines (2 - Td or Tdap) 05/06/2021 05/06/2011 Depression Screening 01/11/2024 01/10/2023 COVID-19 Vaccine ( season) 2024 04/10/2023, 04/07/2022, 03/19/2021, Additional history exists Influenza Vaccine (FLU shot) (#1) 2024 01/08/2023, 06/23/2020, 02/04/2020, Additional history exists GFR 12/25/2024 12/26/2023, 06/09/2023, 08/10/2022, Additional history exists DXA Scan 10/22/2028 [...] kidney documented in this encounter Care Teams Relocation Coordinator Relationship Specialty Start Date End Date Job Brown CRNP [address] [place] [address] PCP - General Nurse Practitioner 01/02/20 documented as of this encounter
--- OUTSIDE RECORDS SUMMARY | 2024-02-02 05:45 | External Medical Summary | Summary of Care ---
Author Name Unknown Organization [facility] Address [address] [facility] [place] [address] Phone [phone] Care Team Providers Care Electric Organ Assembler And Checker Name Role Phone Job Brown Primary Care Provider Reason for Visit * Reason Comments Outpatient Testing Encounter Details Date Type Department Care Team (Late st Contact Info) Description 01/31/2024 12:50 PM EDT Laboratory Laboratory Scene State Pretty Valles [address] [place] [phone] Re[facility] [address] [facility] [place] [id number] Renal vascular disorder Allergies No known active allergiesdocumented as of [...] mammo WNL 05/02 referred to female for roller cleaner/breast exam Considering scope vs FOB DIFFUS CYSTIC MASTOPATHY documented as of this encounter (statuses as of 01/31/2024) Immunizations Name Administration Dates Next Due COVID-19 mRNA, LNP-s, No Pre serve, 2-Dose Series ([employer]) 03/19/2021,07/16/2020,06/25/2020 Pneumococcal Conjugate Vacc, 13 Valent (Prevnar) [...] Depression Screening 01/11/2024 01/10/2023 COVID-19 Vaccine ( - 2022- season) 2024 04/10/2023, 04/07/2022, 03/19/2021, Additional history [...] Not on filedocumented as of this encounter Procedures Procedure Name Priority Date/Time Associated Diagnosis Comments DIFFERENTIAL, AUTOMATED Routine 01/31/2024 12:55 PM EDT Renal vascular disorder CBC Routine 01/31/2024 12:55 PM EDT Renal vascular disorder CBC Routine 01/31/2024 12:55 PM EDT Renal vascular disorder documented in this encounter Results * DIFFERENTIAL, AUTOMATED (01/31/2024 12:55 PM EDT) WBC 7.06 4.00 - 10.80 K/uL 01/31/2024 1:02 PM EDT [facility] Neutrophils % 68.9 40.0 - 75.0 % 01/31/2024 1:02 PM EDT [facility]02 Lymphocytes % 19.5 18.0 - 42.0 % 01/31/2024 1:02 PM EDT [facility]-02 Monocytes % 8.9 1.0 - 11.0 % 01/31/2024 1:02 PM EDT [facility]-02 Eosinophils % 2.4 0.0 - 6.0 % 01/31/2024 1:02 PM EDT [facility]-02 Basophils % 0.3 0.0 - 2.0 % 01/31/2024 1:02 PM EDT [facility]-02 Absolute Neutrophils 4.86 1.80 - 7.70 K/uL 01/31/2024 1:02 PM EDT [facility] 56 Absolute Lymphocytes 1.38 1.00 - 4.80 K/ul 01/31/2024 1:02 PM EDT [facility] 56- Absolute Monocytes 0.63 0.00 - 1.10 K/uL 01/31/2024 1:02 PM EDT [facility] 56- Absolute Eosinophils 0.17 0.00 - 0.70 K/uL 01/31/2024 1:02 PM EDT [facility] 56 Absolute Basophils 0.02 0.00 - 0.20 K/uL 01/31/2024 1:02 PM EDT [facility] 56 Blood Venous blood specimen / Unknown Venipuncture / Unknown 01/31/2024 12:55 PM EDT 01/31/2024 12:55 PM EDT Dalton Contreras MD LAB BLOOD ORDERAB LES [facility] [address] [place] [address] * (ABNORMAL) CBC (01/31/2024 12:55 PM EDT) WBC 7.06 4.00 - 10.80 K/uL 01/31/2024 1:02 PM EDT [facility] 56 RBC 4.84 3.85 - 5.15 M/uL 01/31/2024 1:02 PM EDT [facility] 56 HGB 15.2 12.0 - 15.3 g/dL 01/31/2024 1:02 PM EDT [facility] 56 HCT 45.4(H) 36.0 - 45.2 % 01/31/2024 1:02 PM EDT [facility] 56 MCV 93.8 81.5 - 97.5 fL 01/31/2024 1:02 PM EDT [facility] 56 MCH 31.4 27.0 - 34.0 pg 01/31/2024 1:02 PM EDT [facility] 56 MCHC 33.5 32.0 - 36.0 g/dL 01/31/2024 1:02 PM EDT [facility] 56- RDW 12.5 11.5 - 15.5 % 01/31/2024 1:02 PM EDT [facility] 56- PLT 245 140 - 400 K/uL 01/31/2024 1:02 PM EDT [facility] 56- MPV 11.1 6.6 - 11.1 fL 01/31/2024 1:02 PM EDT [facility] 56- Blood Venous blood specimen / Unknown Venipuncture / Unknown 01/31/2024 12:55 PM EDT 01/31/2024 12:55 PM EDT Dalton Contreras MD LAB BLOOD ORDERAB LES [facility] 56- [address] [place] [address] documented in this encounter Visit Diagnoses Diagnosis Renal vascular disorder Vascular disorders of kidney documented in this encounter Care Teams Electric Organ Assembler And Checker Relationship Specialty Start Date End Date Job Brown CRNP [address] [place] [address] PCP - General Nurse Practitioner 01/02/20 documented as of this encounter
--- OUTSIDE RECORDS SUMMARY | 2024-02-02 05:45 | External Medical Summary | Summary of Care ---
Author Name Unknown Organization [facility] Address [address] [facility] [place] [address] Phone [phone] Care Team Providers Care Hide And Skin Processing Worker Name Role Phone Job Brown Primary Care Provider Reason for Visit * Reason Comments Outpatient Testing Encounter Details Date Type Department Care Team (Late st Contact Info) Description 01/31/2024 12:50 PM EDT Laboratory Laboratory Scene State Pretty Valles [address] [place] [phone] Re[facility] Lab [address] [facility] [place] [address] Renal vascular disorder Allergies No known active [...] mammo WNL 05/02 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 to female for truck driving/breast exam Considering scope vs FOB DIFFUS CYSTIC MASTOPATHY documented as of this encounter (statuses as of 01/31/2024) Immunizations Name Administration Dates Next Due COVID-19 mRNA, LNP-s, No Pre serve, 2-Dose Series ([employer]) 03/19/2021,07/16/2020,06/25/2020 Pneumococcal Conjugate Vacc, 13 Valent [...] - 7.70 K/uL 01/31/2024 1:02 PM EDT [facility] 56 Absolute Lymphocytes 1.38 1.00 - 4.80 K/ul 01/31/2024 1:02 PM EDT [facility] 56- Absolute Monocytes 0.63 0.00 - 1.10 K/uL 01/31/2024 1:02 PM EDT [facility] 56- Absolute Eosinophils 0.17 0.00 - 0.70 K/uL 01/31/2024 1:02 PM EDT [facility] 56 Absolute Basophils 0.02 0.00 - 0.20 K/uL 01/31/2024 1:02 PM EDT [facility] 56 Blood Venous blood specimen / Unknown Venipuncture / Unknown 01/31/2024 12:55 PM EDT 01/31/2024 12:55 PM EDT Dalton Contreras MD LAB BLOOD ORDERAB LES [facility] [address] [place] [address] * (ABNORMAL) CBC (01/31/2024 12:55 PM EDT) WBC 7.06 4.00 - 10.80 K/uL 01/31/2024 1:02 PM EDT [facility] 56 RBC 4.84 3.85 - 5.15 M/uL 01/31/2024 1:02 PM EDT [facility] 56 HGB 15.2 12.0 - 15.3 g/dL 01/31/2024 1:02 PM EDT [facility] 56 HCT 45.4(H) 36.0 - 45.2 % 01/31/2024 1:02 PM EDT [facility] 56 MCV 93.8 81.5 - 97.5 fL 01/31/2024 1:02 PM EDT [facility] 56 MCH 31.4 27.0 - 34.0 pg 01/31/2024 1:02 PM EDT [facility] 56 MCHC 33.5 32.0 - 36.0 g/dL 01/31/2024 1:02 PM EDT [facility] 56- RDW 12.5 11.5 - 15.5 % 01/31/2024 1:02 PM EDT [facility] 56- PLT 245 140 - 400 K/uL 01/31/2024 1:02 PM EDT [facility] 56- MPV 11.1 6.6 - 11.1 fL 01/31/2024 1:02 PM EDT [facility] 56- Blood Venous blood specimen / Unknown Venipuncture / Unknown 01/31/2024 12:55 PM EDT 01/31/2024 12:55 PM EDT Dalton Contreras MD LAB BLOOD ORDERAB LES [facility] [address]- [address] [place] [address] documented in this encounter Visit Diagnoses Diagnosis Renal vascular disorder Vascular disorders of kidney documented in this encounter Care Teams Hide And Skin Processing Worker Relationship Specialty Start Date End Date Job Brown CRNP [address] [place] [address] PCP - General Nurse Practitioner 01/02/20 documented as of this encounter
--- OUTSIDE RECORDS SUMMARY | 2024-02-02 05:45 | External Medical Summary ---
Author Name Unknown Address Unknown Organization [id number]:[facility] - [address] [facility] [address] Laboratory Report Ordering Provider Test Date Status ALLYSONCOLLINS 01/31/2024 14:32:38 Final Observation Date Value Abnormality Reference (Units) Status Bacteria identified in Specimen by Culture 01/31/2024 14:32:38 No significant growth Final Test: Culture, Urine, Quanti tative
Specimen Source: Urine, Clean Catch
Specimen Type: Urine
Specimen Date: 01/31/2024 1432
Result Date: 02/01/2024 1616
Result Status: Final result
Resulting Lab: [facility]
[address]
[facility] [address]

CULTURE

No significant growth

null Performing Location [facility] - [address] [facility] [address]
--- OUTSIDE RECORDS SUMMARY | 2024-02-02 05:45 | External Medical Summary ---
Author Name Unknown Address Unknown Organization K09:[facility] [place] [address] Laboratory Report Ordering Provider Test Date Status DENNIS VALADEZ 01/31/2024 12:55:21 Final Observation Date Value Abnormality Reference (Units ) Status WBC, Total 01/31/2024 12:55:21 7.06 4.00-10.8 0 (K/uL) Final RBC 01/31/2024 12:55:21 4.84 3.85-5.15 (M/uL) Final Hemoglobin 01/31/2024 12:55:21 15.2 12.0-15.3 (g/dL) Final HCT 01/31/2024 12:55:21 45.4 Above high normal 36 .0-45.2 (%) Final MCV 01/31/2024 12:55:21 93.8 81.5-97.5 (fL) Final MCH 01/31/2024 12:55:21 31.4 27.0-34.0 (pg) Final MCHC 01/31/2024 12:55:21 33.5 32.0-36.0 (g/dL) Final RDW 01/31/2024 12:55:21 12.5 11.5-15.5 (%) Final Platelets 01/31/2024 12:55:21 245 140-400 (K /uL) Final MPV 01/31/2024 12:55:21 11.1 6.6-11.1 ( fL) Final Performing Location [facility] [place] [address]
--- OUTSIDE RECORDS SUMMARY | 2024-02-02 05:45 | External Medical Summary ---
Author Name Unknown Address Unknown Organization K09:[facility] [place] [address] Laboratory Report Ordering Provider Test Date Status DENNIS VALADEZ 01/31/2024 12:55:21 Final Observation Date Value Abnormality Reference (Units ) Status SYNC LEUKOCYTES IN BLOOD BY AUTOMATED COUNT 01/31/2024 12:55:21 7.06 4.00-10.80 (K/uL) Final Segs 01/31/2024 12:55:21 68.9 40.0-75.0 (%) Final Lymphs % 01/31/2024 12:55:21 19.5 18.0-42.0 (%) Final Monos 01/31/2024 12:55:21 8.9 1.0-11.0 (%) Final Eosinophils 01/31/2024 12:55:21 2.4 0.0-6.0 (%) Final Basos 01/31/2024 12:55:21 0.3 0.0-2.0 (%) Final Absolute Segs 01/31/2024 12:55:21 4.86 1.80-7.70 (K/uL) Final Lymphs, absolute 01/31/2024 12:55:21 1.38 1.00-4.80 (K/ul) Final Monos, Abs 01/31/2024 12:55:21 0.63 0.00-1.10 (K/uL) Final Eos, Abs 01/31/2024 12:55:21 0.17 0.00-0.70 (K/uL) Final Basos, Abs 01/31/2024 12:55:21 0.02 0.00-0.20 (K/uL) Final Performing Location [facility] [place] [address]
[2024-02-02] MEDS: LACTATED RINGER'S 1,000 ML IV SCH ×2 (06:15→14:15)
[2024-02-02] MEDS ORDERED: REMIFENTANIL HCL 1 MG VIAL IV ONE (07:01)
--- NOTE | 2024-02-02 07:04 | History & Physical Bridge Note ---
Date of Service February 02, 2024 History & Physical Bridge Note I have examined the patient, reviewed the History & Physical and in the interval since the performance of the History & Physical I have noted the following changes of clinical significance: no changes noted
[2024-02-02] MEDS ORDERED: LIDOCAINE 2% 2 ML VIAL/AMP(20MG/ML) INFIL ONE (07:10)
[2024-02-02] MEDS ORDERED: ROCURONIUM BROMIDE 10 MG/ML 5 ML VIAL IV ONE ×3 (07:10→09:37)
[2024-02-02] MEDS ORDERED: DEXAMETHASONE SOD INJ 4 MG/ML VIAL ONE (07:10)
[2024-02-02] MEDS ORDERED: GLYCOPYRROLATE 0.2 MG/ML VIAL ONE ×2 (07:10→11:33)
[2024-02-02] MEDS ORDERED: ONDANSETRON INJ 2 MG/ML 2 ML VIAL ONE (07:10)
[2024-02-02] MEDS ORDERED: fentaNYL citrate PF 100 MCG/2 ML VIAL ONE (07:10)
[2024-02-02] MEDS ORDERED: PROPOFOL IV EMULSION 10 MG/ML 100 ML VIAL IV ONE (07:10)
--- NOTE | 2024-02-02 07:25 | Anesthesiology Consultation ---
Date of Service February 02, 2024 Assessment & Plan Chart Review Chart Review: Acceptable Risk for Surgery Consults Requested none History Surgery Operation Date: 11/17/23 09:40 Proposed Procedures p Robotic Laparoscopic Assisted Partial Nephrectomy, Right - Dalton Contreras MD Operation Date: 02/02/24 07:30 Proposed Procedures p Robotic assisted Laparoscopic Partial Nephrectomy, Right - Dalton Contreras MD Height/Weight Height: 5 ft 6 in Weight: 67.767 kg Allergies Allergy/AdvReac Type Severity Reaction Status Date / Time hydrocodone AdvReac Intermediate Vomiting Verified 02/02/24 05:55 Medications Home Medications Medication Instructions Recorded Confirmed Last Taken atorvastatin 10 mg tablet (Lipitor) 10 mg PO QPM 08/26/23 02/02/24 02/01/24 16:00 calcium carbonate 500 mg-vitamin 1 tab PO QPM 08/26/23 02/02/24 02/01/24 16:00 D3 10 mcg (400 unit) tablet (Calcium 500 With D) acetaminophen 325 mg tablet 650 mg PO QID PRN Pain 11/07/23 02/02/24 Unknown lisinopril 10 mg tablet 10 mg PO QAM 11/07/23 02/02/24 02/01/24 09:00 Active Medications Generic Name Dose Route Start Last Admin Trade Name Freq PRN Reason Stop Dose Admin Lactated Ringer's 1,000 mls @ 15 mls/hr 02/02/24 06:00 02/02/24 06:15 Lr IV 02/03/24 05:59 15 mls/hr .Q24H HAYLEE Administration NPO Date Last Intake of Fluids: 02/01/24 Time Last Intake of Fluids: 19:00 Date Last Intake of Solids: 02/01/24 Time Last Intake of Solids: 16:00 Past Medical History Medical History Normal EBUS (11/2023) per pt. "no cancer" - nephrectomy was to be done in october, but pt. states she had to get her "lungs checked first" Renal mass right Sarcoidosis pt. "never heard of it" Dyslipidemia Hypertension LAD (lymphadenopathy), mediastinal Multiple pulmonary nodules EBUS 12/13 Hx of concussion (03/2022) due to a fall, pt. states she also broke her arm at the time, admitted to hospital x 4 days Biliary colic (08/2023) hx - admit to [facility] 09/13 Osteopenia Cholelithiasis (08/2023) inpt. at [facility] 09/13-per pt. no surgery indicated- Past Family History Family History Father Diabetes Mother Alzheimer disease Denies family history of Colon cancer Ovarian cancer Prostate cancer Myocardial infarction Breast cancer Past Surgical History Surgical History Hx of bilateral cataract extraction (2010) Hx of colonoscopy History of lumpectomy of right breast (1989) benign H/O elbow surgery (2022) Right Elbow, fx Social History Smoking Status: Never smoker Smoking cigarettes per day: 1-2 a day Do You Dip or Chew Tobacco: No Hx Alcohol Use: No Alcohol type: wine alcohol intake frequency: holidays/special occasions only Hx Substance Use: No substance use type: does not use Physical Exam Vital Signs Last Vital Signs Temp 37 C 02/02/24 06:01 Pulse 76 02/02/24 06:01 Resp 20 02/02/24 06:01 BP 181/98 H 02/02/24 06:01 Pulse Ox 94 02/02/24 06:01 O2 Del Method Room Air 02/02/24 06:01 Testing Laboratory Results Blood Type B Positive 02/02/24 05:52 Antibody Screen NEGATIVE 02/02/24 05:52
[2024-02-02] MEDS ORDERED: ePHEDrine sulfate 50 MG/ML AMP IV PRN (07:28)
[2024-02-02] MEDS ORDERED: HYDROmorphone INJ 2 MG/ML SYR/VIAL IV PRN (07:28)
[2024-02-02] MEDS: ceFAZolin 2000MG 2,000 MG/15 ML SYR IV SCH ×2 (07:28→18:00)
[2024-02-02] MEDS ORDERED: ONDANSETRON INJ 2 MG/ML 2 ML VIAL IV PRN ×2 (07:28→13:18)
[2024-02-02] MEDS ORDERED: PROMETHAZINE HCL 6.25 MG in SODIUM CHLORIDE 0.9% 50 ML IV PRN (07:28)
[2024-02-02] MEDS ORDERED: ATROPINE SULFATE 0.1 MG/ML 10ML SYR IV PRN (07:28)
[2024-02-02] MEDS ORDERED: PHENYLEPHRINE HCL 10 MG/ML VIAL ONE (08:37)
[2024-02-02] MEDS: TISSEEL FIBRIN SEALANT 10ML TOP ONE (10:58)
[2024-02-02] MEDS ORDERED: HYDROmorphone INJ 2 MG/ML SYR/VIAL ONE (10:59)
[2024-02-02] MEDS: SURGICEL ABSORB HEMOSTAT 2IN X 14IN TOP ONE (10:59)
[2024-02-02] MEDS: FLOSEAL HEMOSTATIC MATRIX 10ML TOP ONE (11:00)
[2024-02-02] MEDS ORDERED: SUGAMMADEX SODIUM 200 MG/2 ML VIAL IV ONE (11:00)
[2024-02-02] MEDS ORDERED: ceFAZolin 330 MG/ML 1 GM VIAL ONE (11:15)
[2024-02-02] MEDS: BUPIVACAINE 0.5 % 5 MG/1 ML MPF 30ML VIAL ONE (11:20)
[2024-02-02] MEDS: ceFAZolin 2000MG 2,000 MG/15 ML SYR IV ONE (11:20)
[2024-02-02] MEDS ORDERED: NEOSTIGMINE METHYLSULFATE 1 MG/ML 10ML VIAL ONE (11:33)
--- NOTE | 2024-02-02 11:53 | Operative Report ---
PG Post Operative Report Pre & Post Diagnosis Operation Date: 02/02/24 07:30 Pre-Op Diagnosis: Right renal Mass Post-Op Diagnosis: Right renal Mass I identified the patient and participated in the time-out.: Yes Procedure Operation Date: 02/02/24 07:30 Actual Procedures p Robotic assisted Laparoscopic Radical Right Nephrectomy(Right) - Dalton Contreras MD Surgeon Dalton Contreras MD Daylight Driller FRANTZ Rojo, FRANTZ Linda Estimated Blood Loss 10 Findings See Below Dense adhesion of colon and possibly small bowel near liver and gallbladder, dissected behind this area through Gerota's fascia to access the kidney. Mass was exceedingly posterior and seemed deep near the collecting system on intraoperative ultrasound. Right radical nephrectomy was performed. Specimens Right kidney Drains Dan catheter per urethra none Anesthesia Type General Complications none Disposition Accompanied Patient To Recovery: Yes Disposition: Recovery Room Indications This is a 73-year-old female followed by urology for right renal mass concerning for renal cell carcinoma. She presents the OR today for surgical removal of the mass. Description of Procedure The patient was identified and informed consent was obtained. She was marked on the right side and was brought to the operating room where general anesthesia was initiated. She was placed in a flank position with the left side elevated. All pressure points were carefully padded. A timeout was then performed. A surgical marker was used to draw a line approximately 7 cm to the right of the umbilicus, in the mid clavicular area. Anticipated port sites were marked starting approximately 2 fingerbreadths below the costal margin. Subsequent ports were anticipated to be 6 to 7 cm spaced down this line. An incision was made at the second anticipated site, then dissection was carried down to the fascia. A Veress needle was used to obtain access to the peritoneum. Good position was confirmed with a negative aspiration, appropriate drop test and low opening insufflation pressure. The abdomen was then inflated with CO2 to 15 mmHg. The first robotic port was then placed and the camera was inserted. The abdominal cavity was surveyed. There was no injury to any intra-abdominal structure. There was some dense adhesions of the colon and small bowel around his gallbladder. The remaining 3 robotic ports were placed under direct visualization, using an 8-12 mm port in the lowermost site. A 12 mm fws faculty assistant port was then placed in the midline above the umbilicus. A 5 mm port was placed cephalad to the fws faculty assistant port to be used as a liver retractor. The robot was then docked. I divided the colon adhesions sharply to try to reflect along the white line of Toldt. The adhesions around the gallbladder and liver were very dense and did not seem to loosen at all as the colon was reflected. I was able to carry dissection up through Gerota's fascia over the kidney, to gain better access to the medial structures. The left the liver and gallbladder alone. The duodenum was kocherized sharply. Once the colon was sufficiently reflected, the gonadal vessels and right ureter were identified. These were then dissected cephalad to identify the renal hilum. She had 3 renal arteriees and 1 renal vein. Adequate windows were dissected to facilitate placement of bulldog clamps on both vessels. I then turned my attention toward the renal mass. On preoperative imaging this seemed to be at the upper pole on the posterior aspect. There is also a possible second mass adjacent to the first. Gerota's fascia was incised and the fat was dissected away to expose the renal capsule. The intraoperative ultrasound was then introduced and used to survey this area of the kidney. The mass appeared to be on the posterior aspect of what I was able to visualize. Unfortunately this was somewhat close behind the liver and gallbladder adhesions. Attempted to mobilize the upper pole of the kidney to try to reflect it to be able to visualize the mass, but even due to doing this, as not able to visualize the mass and on the ultrasound it remained posterior, behind other renal tissue. Additionally, the mass was somewhat larger than I had expected based on imaging and that seem to extend down near the collecting system. I elected to perform a radical nephrectomy. The robotic stapler was introduced and then using vascular staple loads, the renal arteries were sequentially divided followed by the renal vein. There was good hemostasis at this point. The remaining connections of the kidney to the retroperitoneum were divided. The ureter was doubly clipped and divided. Once the kidney was free, the nephrectomy bed was inspected and found to have good hemostasis. Surgicel was applied to the hilum and area under the liver followed by Floseal and Tisseel. The robot was dedocked. The right lower quadrant incision was then extended and the specimen was extracted. This was sent for pathologic analysis labeled as "right kidney". The incision was closed using a running 2-0 Vicryl in the peritoneal layer. The internal oblique fascia was then closed using a running 0 Vicryl suture. The external oblique fascia was closed using interrupted [id number] sutures with 0 Vicryl. The fascia was then anesthetized and the subcutaneous tissue was closed with a running 3-0 Vicryl followed by running subcuticular 4-0 Monocryl suture in the skin. The remaining laparoscopic incisions were anesthetized with 0.5% Marcaine and closed with buried interrupted 4-0 Monocryl's. Dermabond was applied to all incisions. The patient was then awakened from anesthesia and brought to the PACU in stable condition. All sponge and instrument counts were correct at the end of the case. Of note, Eufemia LANDRY, acted as bedside fws faculty assistant for the duration of the case, helping with initial positioning, access, retraction, dissection and with closing. FRANTZ Linda, was present as well at the bedside learning how to be inventory control assistant. I attest to the content of the Intraoperative Record and any orders documented therein. Any exceptions are noted below.
[2024-02-02] MEDS ORDERED: LABETALOL HCL IV 5 MG/ML 20ML IV ONE (11:58)
[2024-02-02] MEDS: fentaNYL citrate PF 100 MCG/2 ML VIAL IV PRN (12:32)
[2024-02-02 12:46] LABS: Basophils # (auto) 0.01 K/uL (0.00-0.20); Basophils % (auto) 0.1 %; Eosinophils # (auto) 0.01 K/uL (0.00-0.50); Eosinophils % (auto) 0.1 %; Hematocrit (blood only) 43.1 % (37.0-47.0); Hemoglobin 14.6 g/dl (12.0-16.0); Immature Granulocytes # (auto) 0.02 K/uL (0.01-0.20); Immature Granulocytes % (auto) 0.3 %; Lymphocytes # (auto) 0.59 K/uL (1.20-3.40); Lymphocytes % (auto) 8.3 %; Mean Corpuscular Hgb Conc 33.9 g/dL (32.0-36.0); Mean Corpuscular Volume 91.5 fL (80.0-100.0); Mean Platelet Volume 11.4 fL (9.4-12.4); Monocytes # (auto) 0.09 K/uL (0.11-0.59); Monocytes % (auto) 1.3 %; Neutrophils # (auto) 6.36 K/uL (1.40-6.50); Neutrophils % (auto) 89.9 %; Platelet Count 178 K/uL (130-400); RDW Coefficient of Variation 11.8 % (11.5-14.5); RDW Standard Deviation 39.2 fL (36.4-46.3); Red Blood Count 4.71 M/uL (4.20-5.40); White Blood Count 7.08 K/ul (4.8-10.8)
[2024-02-02 13:11] LABS: BUN Creatinine Ratio 11.5 (10-20); Calcium 9.4 mg/dl (8.6-10.3); Creatinine Clr Calc Pharmacy 43.8 ml/min; Est GFR (African American) 60.9 ml/min; Est GFR (Non-African American) 52.5 ml/min; Potassium 3.9 mmol/L (3.5-5.1)
[2024-02-02] MEDS ORDERED: HYDROmorphone INJ 0.5 MG/0.5 ML SYR IV PRN (13:18)
[2024-02-02] MEDS ORDERED: oxyCODONE HCL IR 5 MG TAB (IMMEDIATE RELEASE) PO PRN (13:18)
--- NOTE | 2024-02-02 14:02 | Anesthesiology Progress Note ---
Date of Service February 02, 2024 Anesthesia Post Procedure Vital Signs Vital Signs: Temp Pulse Pulse Pulse Resp BP BP 02/02/24 13:22 02/02/24 13:20 36.2 C L 59 L 18 169/90 H 02/02/24 12:51 36.4 C L 56 L 12 179/85 H 02/02/24 12:40 50 L 12 159/76 H 02/02/24 12:30 54 L 19 169/78 H 02/02/24 12:20 65 20 174/93 H 02/02/24 12:10 68 16 172/95 H 02/02/24 12:00 76 22 175/95 H 02/02/24 11:52 36.0 C L 105 H 36 H 227/139 H 02/02/24 06:01 37 C 76 20 181/98 H Pulse Ox O2 Del Method O2 Flow Rate 02/02/24 13:22 Room Air 02/02/24 13:20 95 Nasal Cannula 2 02/02/24 12:51 99 Nasal Cannula 3 02/02/24 12:40 92 Nasal Cannula 3 02/02/24 12:30 93 Room Air 02/02/24 12:20 99 Oxymask 10 02/02/24 12:10 98 Oxymask 10 02/02/24 12:00 100 Oxymask 10 02/02/24 11:52 92 Oxymask 10 02/02/24 06:01 94 Room Air Pain Intensity Abdomen: Pain Intensity: 10 Transfer of Care Handoff Completed per policy Notes Mental Status: alert / awake / arousable and participated in evaluation Patient Amnestic to Procedure: Yes Nausea / Vomiting: adequately controlled Pain: adequately controlled Airway Patency, RR, SpO2: stable & adequate BP & HR: stable & adequate Hydration State: stable & adequate Anesthetic Complications: no major complications apparent
[2024-02-02] MEDS: bisacodyL 5 MG TABEC PO STA (14:21)
[2024-02-02] MEDS: oxyCODONE HCL IR 5 MG TAB (IMMEDIATE RELEASE) PO PRN (16:14)
[2024-02-02] MEDS: DOCUSATE SODIUM 100 MG CAP PO SCH (20:43)
[2024-02-02] MEDS: ATORVASTATIN 10 MG TAB PO SCH (20:43)
[2024-02-02] MEDS: CALCIUM 600MG + VIT D 400 IU TAB PO SCH (20:44)
[2024-02-02] MEDS: HEPARIN SOD 5,000 UNIT/0.5 ML VIAL SQ SCH (20:46)
[2024-02-03] MEDS: HYDROmorphone INJ 0.5 MG/0.5 ML SYR IV PRN (04:48)
[2024-02-03 08:02] VITALS: RESP 18; TEMP 98.1; O2SAT 92
[2024-02-03] MEDS: lisinopril 10 MG TAB PO SCH (08:02)
[2024-02-03] MEDS: ACETAMINOPHEN 325 MG TAB PO PRN (08:06)
--- NOTE | 2024-02-03 08:09 | Urology Progress Note ---
Date of Service February 03, 2024 Assessment & Plan (1) Renal mass: Plan: Overall, she is recovering appropriately from robot-assisted radical nephrectomy on 02/02/2024. We will plan on catheter removal this morning. She should have breakfast and ambulate. We will plan on discharge home today. Admission and Anticipated Discharge Date Admission Date: February 02, 2024 Subjective Feeling okay this morning, having more pain than yesterday evening No fevers or chills overnight Was able to tolerate some food last night, has not had breakfast yet today Has not ambulated yet today Dan catheter draining well with no issue Creatinine stable Physical Exam Physical Exam: Well-appearing, resting in bed Abdomen is soft, appropriate kennedi-incisional tenderness to palpation Dan catheter in place draining clear urine Results & Data Vital Signs (Past 12 Hours) Vital Signs Temp Pulse Resp BP Pulse Ox O2 Del Method 02/03/24 08:01 36.7 C 76 18 155/89 H 92 Room Air 02/03/24 02:27 36.6 C 77 16 136/72 93 Room Air 02/02/24 22:33 36.5 C 69 16 113/64 94 Room Air 02/02/24 21:05 Room Air PG Care Time/CCT Total # of Minutes Spent Total Time Spent with Patient: Total time spent is greater than 50% in coordination of care (as documented) at patient's floor/unit and/or counseling patient: Coding Level of Care Code None Diagnoses Renal mass N28.89
--- NOTE | 2024-02-03 08:17 | Discharge Summary ---
Date of Service February 03, 2024 Admission HPI Per Admitting Provider This is a 73-year-old female followed by urology for renal mass concerning for malignancy. She presented to the OR on 02/02/2024 for surgical removal of this mass. She underwent robot-assisted radical nephrectomy and was admitted postoperatively in good condition. Admission Exam Per Admitting Provider Constitutional well developed and well nourished; no acute distress Eyes + anicteric sclerae; pupils not irregular Respiratory normal respiratory effort; no respiratory distress, does not use accessory muscles and no cough Cardiovascular well perfused Gastrointestinal (Abdomen) Inspection/Auscultation: abdomen normal to inspection; abdomen not distended Musculoskeletal Extremities: extremities normal to inspection Skin normal turgor; no rashes and no lesions Neurologic moves all extremities and awake Psychiatric Orientation: alert and oriented x 3 Principal Diagnosis Renal mass, suspected malignancy Discharge Exam Well-appearing, resting in bed Abdomen is soft, appropriate kennedi-incisional tenderness to palpation Dan catheter in place draining clear urine Discharge Data Allergies Allergy/AdvReac Type Severity Reaction Status Date / Time hydrocodone AdvReac Intermediate Vomiting Verified 02/02/24 05:55 Procedures Performed Operation Date: 02/02/24 07:30 Actual Procedures p Robotic assisted Laparoscopic Radical Right Nephrectomy(Right) - Dalton Contreras MD Hospital Course (1) Renal mass: (2) Renal malignant neoplasm: Plan She underwent robotic radical nephrectomy on 02/02/2024. By postop day 1, she was tolerating a diet, ambulating and pain was well-controlled on oral medications. Creatinine was stable. She was discharged home in good condition with plan for close follow-up. Total Time Total Time Spent Total Time Spent (In Minutes): 15 Discharge Plan Discharge Items Patient Disposition: Home - Self-Care Reason For Visit: RENAL CANCER Discharge Diagnosis: Renal mass, suspected malignancy Activity: Per Instructions section Non-emergency contact: Urologist Call non-emergency contact if: your pain is worsening, you have a fever, your temperature is above 101, your wound has increased redness, your wound has increased drainage and your wound pain has increased Follow-up/Referrals: Job Brown III, CRNP [Primary Care Provider] - Diet: Regular Addtl Attending Provider Instructions: The surgery you had was: Robot-assisted radical nephrectomy Please take all medications as prescribed and keep all follow-ups as scheduled. Please call our office at [phone] with any questions, concerns or need to reschedule appointments for any reason. We are happy to assist you. Medications: Take Tylenol every 6 hours for baseline pain control If you are prescribed narcotics such as oxycodone, please take it according to the instructions on the label. Activity/Recovering at home: We recommend having someone with you for the first few days after surgery to help care for you. It is okay to shower tomorrow. Please avoid swimming, bathing or using hot tub until incisions are well healed. Avoid driving until you are not requiring pain medication any further. Walk at least a few times a day. Increase your distance, as you feel able. Stairs in your home are okay. Please avoid strenuous or sexual activity until your follow-up. No lifting anything more than 10 pounds for 6 to 8 weeks Use a stool softener (i.e. Colace) to prevent constipation, especially the first two weeks post operatively. You should not be straining/pushing to have a bowel movement. Follow-up: We will have you come to the urology office in 1-2 weeks for a wound check. We would like to get labs prior to this appointment to check your kidney function. Call [facility] at [phone] if you experience: Chest pain or trouble breathing (call 911 or go to the hospital). Fever of 101F or higher Symptoms of infection at incision site, including redness or swelling, warmth, or bad-smelling drainage Pain that is not controlled with medicines Pending Studies at Discharge: No Stand-Alone Forms: My [facility], Smoking Cessation Medications and DC Order Prescriptions: Continued atorvastatin [Lipitor] 10 mg tablet 10 mg PO QPM Hold Instructions: Resume on 09/05/23. Rx Instructions: TAKE 1 TABLET BY MOUTH EVERY EVENING calcium carbonate-vitamin D3 [Calcium 500 With D] 500 mg-10 mcg (400 unit) tablet 1 tab PO QPM acetaminophen 325 mg tablet 650 mg PO QID PRN (Reason: Pain) lisinopril 10 mg tablet 10 mg PO QAM Discharge Orders: Discharge Order (Routine); Ordered 02/03/24 Ordered By: Dalton Contreras Admission Data Admit Date/Time: 02/02/24 11:49 Attending Provider: Dalton Contreras Admit Provider: Dalton Contreras Primary Care Provider: Job Brown III Coding Level of Care Code 92767 IN/OBS DISCH 30 MIN/LESS Diagnoses Renal mass N28.89 Renal malignant neoplasm C64.9
[2024-02-03 08:44] LABS: BUN Creatinine Ratio 12.4 (10-20); Calcium 9.6 mg/dl (8.6-10.3); Creatinine Clr Calc Pharmacy 29.7 ml/min; Est GFR (African American) 38.2 ml/min; Est GFR (Non-African American) 32.9 ml/min; Potassium 4.5 mmol/L (3.5-5.1)
[2024-02-03 08:53] LABS: Basophils # (auto) 0.01 K/uL (0.00-0.20); Basophils % (auto) 0.1 %; Hematocrit (blood only) 32.8 % (37.0-47.0); Hemoglobin 11.3 g/dl (12.0-16.0); Immature Granulocytes # (auto) 0.04 K/uL (0.01-0.20); Immature Granulocytes % (auto) 0.3 %; Lymphocytes # (auto) 1.09 K/uL (1.20-3.40); Lymphocytes % (auto) 9.5 %; Mean Corpuscular Hemoglobin 31.5 pg (25.0-34.0); Mean Corpuscular Hgb Conc 34.5 g/dL (32.0-36.0); Mean Corpuscular Volume 91.4 fL (80.0-100.0); Mean Platelet Volume 11.9 fL (9.4-12.4); Monocytes % (auto) 9.6 %; Neutrophils # (auto) 9.19 K/uL (1.40-6.50); Neutrophils % (auto) 80.5 %; Platelet Count 201 K/uL (130-400); RDW Coefficient of Variation 11.9 % (11.5-14.5); RDW Standard Deviation 39.9 fL (36.4-46.3); Red Blood Count 3.59 M/uL (4.20-5.40); White Blood Count 11.43 K/ul (4.8-10.8)
[2024-02-03 10:38] VITALS: BP 124/61; PULSE 56
--- NOTE | 2024-03-07 08:30 | Coding Query ---
PATHOLOGY To promote full compliance with coding requirements relating to patient care, physician participation is requested in all cases of supervisor cab uncertainty. Please assist us with the question(s) below: Please review the Pathology report and please document any relevant diagnosis(es) below: Diagnosis(es): Oncocytoma of kidney Thank you Amber GARCIA
== END 2024-02-03 15:02 | disposition home or self-care (01) | DRG 658 ==
LOC: ASU 05:40 → 3N 11:49 → INTOOBSV 11:49 → OBSVTOIN 11:49